=== PATIENT | male | born 1955 | race Caucasian/White ===

== ENCOUNTER → 2017-05-27 | Outpatient (CLI) | payer MEDICARE, OTHER ==
--- NOTE | 2017-05-27 19:47 | MR ---
EXAMINATION TYPE: MR lumbar spine wo con DATE OF EXAM: 05/27/2017 COMPARISON: NONE HISTORY: M 53.16 radiculopathy of the lumbar region as well as leg weakness. TECHNIQUE: Multiplanar, multisequence images of the lumbar spine were acquired. Marrow signal is slightly heterogeneous. Mild endplate changes are noted. All of the intervertebral d iscs are desiccated. There is loss of intervertebral disc space height at the level of L4-5 and L5-S1 . Soft tissue structures are unremarkable. The conus ends at T12 which is normal. L1-L2: There is a circumferential disc bulge which effaces the ventral thecal sac and goes into both neural foramina. This causes moderate right and mild left neural foraminal narrowing. There is also m ild facet hypertrophy and ligamentum flavum hypertrophy. No central canal stenosis is identified. L2-L3: There is severe central canal stenosis. The diameter of the central canal is only 7 mm. This i s due to a combination of disc bulge as well as ligamentum flavum and facet hypertrophy. There is als o mild endplate spurring. There is mild bilateral neural foraminal narrowing. L3-L4: There is severe central canal stenosis with only 4 mm of the central canal diameter identified . This is due to posterior disc bulge with a superimposed left paracentral herniation. There is also ligamentum flavum hypertrophy and facet hypertrophy. There is a T2 hyperintense focus noted in the ep idural space posterior to the right of the central canal. This is definitely causing mass effect on t he central canal. This could be a synovial cyst. L4-L5: There is moderate central canal stenosis due to circumferential disc bulge. There is also endp late spurring into the right neural foramen which causes moderate to severe right-sided neural forami nal narrowing. There is no left-sided neural foraminal narrowing. There is also facet and ligamentum flavum hypertrophy not as severe as the more superior levels. L5-S1: There is no significant central canal stenosis. There is moderate bilateral neural foraminal n arrowing due to superimposed disc herniations into both neural foramen. There appears to be near obli teration of the left neural foramen. There is only mild right-sided neural foraminal narrowing. Lumbar segments are intact. No paraspinal masses are identified. Conus medullaris has a normal appe arance. IMPRESSION: Severe spondylosis with severe central canal stenosis worst at the levels of L2-3 and L3-4.
== END | disposition home or self-care (01) ==
LOC: RADMRIMAIN 12:03
PROVIDERS: ATTEND Psychiatry & Neurology Neurology
DX: M48.061 Spinal stenosis, lumbar region without neurogenic claudication (principal); M47.26 Other spondylosis with radiculopathy, lumbar region
CPT/HCPCS: 72148

== ENCOUNTER → 2022-09-21 | Outpatient (CLI) | payer MEDICARE ==
--- NOTE | 2022-09-21 16:06 | XR ---
EXAMINATION TYPE: XR chest 2V DATE OF EXAM: 09/21/2022 COMPARISON: None INDICATION: Cough TECHNIQUE: Frontal and lateral views of the chest are obtained. FINDINGS: The heart size is normal. The pulmonary vasculature is normal. The lungs are clear. Degenerative changes are at the left shoulder. IMPRESSION: 1. No acute pulmonary process.
== END | disposition home or self-care (01) ==
LOC: RADXRMAIN 15:36
PROVIDERS: ATTEND Family Medicine
DX: R05.9 Cough, unspecified (principal)
CPT/HCPCS: 71046

== ENCOUNTER 2023-04-13 19:02 | Inpatient (IN) | payer MEDICARE, OTHER ==
--- NOTE | 2023-04-13 20:01 | ED ---
Abdominal Pain HPI - General Chief Complaint: Abdominal Pain Stated Complaint: Back Pain Time Seen by Provider: 04/13/23 19:09 Source: patient, family, RN notes reviewed Mode of arrival: EMS Limitations: no limitations - History of Present Illness Initial Comments: This is a 68-year-old male who presents to the emergency department for abdominal pain and back pain. Patient is a poor historian, however EMS was reportedly called due to increasing abdominal pain. Patient also reported having back pain. He does have a history of chronic back pain as well as ongoing constipation related to long-term use of [place]. He states that he has not had a bowel movement in 4 days, however this is not uncommon for him. He usually treats this with MiraLAX. Denies any nausea or vomiting. States that since being in the emergency department, his pain has started to improve and he denies any other complaints. When his family arrived, they provided much more information. They state that today out of no where he started to develop severe pain in his back and abdomen, and then became very dizzy and diaphoretic. The episode was a fairly short, however this prompted his family to call EMS. Family states that he has been increasingly weak and has been experiencing frequent falls. He's also been complaining of back pain for a longer period of time. About a year ago he had cervical fusion surgery at [facility], and his symptoms at that time were weakness in both arms and frequent falls. This family is concerned that he may have a similar problem in his lower back and need surgery for this. His also states that sometimes he will go up to 10 days without a bowel movement, which is due to his long-term use of [place]. Complaint: abdominal pain - Related Data Allergies Allergy/AdvReac Type Severity Reaction Status Date / Time No Known Allergies Allergy Verified 04/13/23 19:12 Review of Systems ROS Statement: Those systems with pertinent positive or pertinent negative responses have been documented in the HPI. ROS Other: All systems not noted in ROS Statement are negative. Past Medical History Past Medical History: Hyperlipidemia, Hypertension, Osteoarthritis (OA) Additional Past Medical History / Comment(s): djd of spine History of Any Multi-Drug Resistant Organisms: None Reported Past Surgical History: Orthopedic Surgery Additional Past Surgical History / Comment(s): cervical fusion Smoking Status: Current every day smoker Past Alcohol Use History: None Reported Past Drug Use History: None Reported General Exam Limitations: no limitations General appearance: alert, in no apparent distress Head exam: Present: atraumatic, normocephalic, normal inspection Respiratory exam: Present: normal lung sounds bilaterally. Absent: respiratory distress, wheezes, rales, rhonchi, stridor Cardiovascular Exam: Present: regular rate, normal rhythm, normal heart sounds. Absent: systolic murmur, diastolic murmur, rubs, gallop, clicks GI/Abdominal exam: Present: soft, other (palpable stool throughout) Neurological exam: Present: alert, oriented X3, CN II-XII intact Psychiatric exam: Present: normal affect, normal mood Skin exam: Present: warm, dry, intact, normal color. Absent: rash Course Vital Signs 04/13/23 19:04 Temperature 97 F L Pulse Rate 86 Respiratory 16 Rate Blood Pressure 119/85 O2 Sat by Pulse 95 Oximetry Medical Decision Making - Medical Decision Making This is a 68-year-old male who presents to the emergency department for abdominal pain and back pain. Was pt. sent in by a medical professional or institution? @ -No Did you speak to anyone other than the patient for history? @ -His family provided the majority of the information. Did you review nursing and triage notes? @ -Yes, and I agree, it is accurate with regards to the patient's symptoms. Were old charts reviewed? @ -No Differential Diagnosis? @ -Differential Abdominal Pain Men: Appendicitis, cholecystitis, diverticulosis, ischemic bowel, pancreatitis, hepatitis, UTI, gastroenteritis, AAA, incarcerated hernia, bowel obstruction, constipation, inflammatory bowel, hepatitis, peptic ulcer disease, splenic infarction, perforated viscus, testicular torsion, this is not meant to be an all-inclusive list EKG interpreted by me (3pts min.)? @ -EKG interpreted by me demonstrating the following: Sinus rhythm. Ventricular rate 88 bpm, TN interval 206 ms, QRS duration 90 ms, QTC 386 ms. X-rays interpreted by me (1pt min.)? @ -KUB x-ray obtained. My interpretation identifies significant stool burden. CT interpreted by me (1pt min.)? @ -CT scan of the abdomen/pelvis and lumbar spine obtained. My interpretation identifies a fairly significant amount of stool throughout the colon. My interpretation of the lumbar spine computed tomography scan identifies degenerative changes and no acute fractures. U/S interpreted by me (1pt. min.)? @ -Not obtained What testing was considered but not performed? (CT, X-rays, U/S, labs)? Why? @ -None What meds were considered but not given? Why? @ -None Did you discuss the management of the patient with other professionals? @ -Yes, Dr. Camara, who accepts the patient for admission. Did you reconcile home meds? @ -No Was smoking cessation discussed for >3mins.? @ -No Was critical care preformed (if so, how long)? @ -No Were there social determinants of health that impacted care today? How? (Homelessness, low income, unemployed, alcoholism, drug addiction, transportation, low edu. Level, literacy, decrease access to med. care, care home, rehab)? @ -No Was there de-escalation of care discussed even if they declined? (Discuss DNR or withdrawal of care, Hospice)? @ -No What co-morbidities impacted this encounter? (DM, HTN, Smoking, COPD, CAD, Cancer, CVA, Hep., AIDS, mental health diagnosis, sleep apnea, morbid obesity)? @ -HLD, HTN, DDD, OA Was patient admitted / discharged? @ -Admimtted. Lab work obtained revealing a leukocytosis as well as hypon atremia with a sodium of 121. Patient reports a history of hyponatremia in the past. States that he saw a apartment house manager and they could not figure out why. KUB x-ray obtained revealing gastric distended loops of small and large bowel, most notable in the left upper quadrant and mid abdominal positions. Given the leukocytosis and the patient's symptoms, CT scan of the abdomen/pelvis and lumbar spine obtained. This revealed significant stool burden without evidence of bowel obstruction. Computed tomography scan of the lumbar spine demonstrates multiple degenerative changes without any acute process. Patient does take [place] 10 mg every 6 hours for chronic pain, which is likely the main cause of this problem. Discussed with the family that the cause of the leukocytosis is not entirely clear. We obtained blood cultures and started the patient on Zosyn empirically. They later mentioned that the patient had one tooth pulled 4 days ago and wonder if that may be the cause of it. Advised that it is not entirely clear whether or not this may elevate the white blood cell count to this extent. Patient admitted to medicine for hyponatremia, leukocytosis, and weakness. Nephrology consulted regarding the hyponatremia. Consult placed for occupational and physical therapy regarding the weakness and frequent falls. Undiagnosed new problem with uncertain prognosis? @ -None Drug Therapy requiring intensive monitoring for toxicity (Heparin, Nitro, Insulin, Cardizem)? @ -None Were any procedures done? @ -None Diagnosis/symptom? @ -Hyponatremia, leukocytosis, weakness Acute, or Chronic, or Acute on Chronic? @ -Acute Uncomplicated (without systemic symptoms) or Complicated (systemic symptoms)? @ -Complicated Side effects of treatment? @ -None Exacerbation, Progression, or Severe Exacerbation] @ -Not applicable Poses a threat to life or bodily function? @ -Yes This case was discussed in detail with the attending ED physician, Dr. Shepherd. Presentation, findings, and treatment plan discussed in detail as well. - Lab Data Result diagrams: 04/13/23 19:50 04/13/23 19:50 Lab Results 04/13/23 04/13/23 04/13/23 Range/Units 19:50 19:50 19:50 WBC 23.6 H (3.8-10.6) k/uL RBC 4.69 (4.30-5.90) m/uL Hgb 15.1 (13.0-17.5) gm/dL Hct 43.5 (39.0-53.0) % MCV 92.8 (80.0-100.0) fL MCH 32.2 (25.0-35.0) pg MCHC 34.7 (31.0-37.0) g/dL RDW 12.6 (11.5-15.5) % Plt Count 490 H (150-450) k/uL MPV 7.8 Neutrophils % (Manual) 83 % Band Neuts % (Manual) 1 % Lymphocytes % (Manual) 6 % Monocytes % (Manual) 10 % Metamyelocytes % 1 % Neutrophils # (Manual) 19.80 H (1.3-7.7) k/uL Lymphocytes # (Manual) 1.42 (1.0-4.8) k/uL Monocytes # (Manual) 2.36 H (0-1.0) k/uL Metamyelocytes # (Man) 0.24 H (0) k/uL Nucleated RBCs 0 (0-0) /100 WBC Manual Slide Review Performed Toxic Granulation Present Sodium 121 L (137-145) mmol/L Potassium 4.0 (3.5-5.1) mmol/L Chloride 86 L (98-107) mmol/L Carbon Dioxide 21 L (22-30) mmol/L Anion Gap 14 mmol/L BUN 13 (9-20) mg/dL Creatinine 1.03 (0.66-1.25) mg/dL Est GFR (CKD-EPI)AfAm 86 (>60 ml/min/1.73 sqM) Est GFR (CKD-EPI)NonAf 74 (>60 ml/min/1.73 sqM) Glucose 136 H (74-99) mg/dL Osmolality (280-301) mosm/kg Plasma Lactic Acid Tulio 1.8 (0.7-2.0) mmol/L Calcium 8.9 (8.4-10.2) mg/dL Phosphorus (2.5-4.5) mg/dL Magnesium (1.6-2.3) mg/dL Total Bilirubin 1.0 (0.2-1.3) mg/dL AST 32 (17-59) U/L ALT 16 (4-49) U/L Alkaline Phosphatase 71 (38-126) U/L Troponin I (0.000-0.034) ng/mL Total Protein 7.4 (6.3-8.2) g/dL Albumin 4.0 (3.5-5.0) g/dL Amylase (30-110) U/L Lipase (23-300) U/L TSH (0.465-4.680) mIU/L Cortisol ug/dL Urine Color Urine Appearance (Clear) Urine pH (5.0-8.0) Ur Specific [place] (1.001-1.035) Urine Protein (Negative) Urine Glucose (UA) (Negative) Urine Ketones (Negative) Urine Blood (Negative) Urine Nitrite (Negative) Urine Bilirubin (Negative) Urine Urobilinogen (<2.0) mg/dL Ur Leukocyte Esterase (Negative) Influenza Type A (PCR) (Not Detectd) Influenza Type B (PCR) (Not Detectd) RSV (PCR) (Not Detectd) SARS-CoV-2 (PCR) (Not Detectd) 04/13/23 04/13/23 04/13/23 Range/Units 19:50 21:15 21:25 WBC (3.8-10.6) k/uL RBC (4.30-5.90) m/uL Hgb (13.0-17.5) gm/dL Hct (39.0-53.0) % MCV (80.0-100.0) fL MCH (25.0-35.0) pg MCHC (31.0-37.0) g/dL RDW (11.5-15.5) % Plt Count (150-450) k/uL MPV Neutrophils % (Manual) % Band Neuts % (Manual) % Lymphocytes % (Manual) % Monocytes % (Manual) % Metamyelocytes % % Neutrophils # (Manual) (1.3-7.7) k/uL Lymphocytes # (Manual) (1.0-4.8) k/uL Monocytes # (Manual) (0-1.0) k/uL Metamyelocytes # (Man) (0) k/uL Nucleated RBCs (0-0) /100 WBC Manual Slide Review Toxic Granulation Sodium (137-145) mmol/L Potassium (3.5-5.1) mmol/L Chloride (98-107) mmol/L Carbon Dioxide (22-30) mmol/L Anion Gap mmol/L BUN (9-20) mg/dL Creatinine (0.66-1.25) mg/dL Est GFR (CKD-EPI)AfAm (>60 ml/min/1.73 sqM) Est GFR (CKD-EPI)NonAf (>60 ml/min/1.73 sqM) Glucose (74-99) mg/dL Osmolality (280-301) mosm/kg Plasma Lactic Acid Tulio (0.7-2.0) mmol/L Calcium (8.4-10.2) mg/dL Phosphorus (2.5-4.5) mg/dL Magnesium (1.6-2.3) mg/dL Total Bilirubin (0.2-1.3) mg/dL AST (17-59) U/L ALT (4-49) U/L Alkaline Phosphatase (38-126) U/L Troponin I <0.012 (0.000-0.034) ng/mL Total Protein (6.3-8.2) g/dL Albumin (3.5-5.0) g/dL Amylase 64 (30-110) U/L Lipase 92 (23-300) U/L TSH (0.465-4.680) mIU/L Cortisol ug/dL Urine Color Yellow Urine Appearance Clear (Clear) Urine pH 5.5 (5.0-8.0) Ur Specific [place] 1.029 (1.001-1.035) Urine Protein Trace H (Negative) Urine Glucose (UA) Negative (Negative) Urine Ketones Negative (Negative) Urine Blood Negative (Negative) Urine Nitrite Negative (Negative) Urine Bilirubin Negative (Negative) Urine Urobilinogen <2.0 (<2.0) mg/dL Ur Leukocyte Esterase Negative (Negative) Influenza Type A (PCR) (Not Detectd) Influenza Type B (PCR) (Not Detectd) RSV (PCR) (Not Detectd) SARS-CoV-2 (PCR) (Not Detectd) 04/13/23 04/13/23 Range/Units 21:25 23:28 WBC (3.8-10.6) k/uL RBC (4.30-5.90) m/uL Hgb (13.0-17.5) gm/dL Hct (39.0-53.0) % MCV (80.0-100.0) fL MCH (25.0-35.0) pg MCHC (31.0-37.0) g/dL RDW (11.5-15.5) % Plt Count (150-450) k/uL MPV Neutrophils % (Manual) % Band Neuts % (Manual) % Lymphocytes % (Manual) % Monocytes % (Manual) % Metamyelocytes % % Neutrophils # (Manual) (1.3-7.7) k/uL Lymphocytes # (Manual) (1.0-4.8) k/uL Monocytes # (Manual) (0-1.0) k/uL Metamyelocytes # (Man) (0) k/uL Nucleated RBCs (0-0) /100 WBC Manual Slide Review Toxic Granulation Sodium (137-145) mmol/L Potassium (3.5-5.1) mmol/L Chloride (98-107) mmol/L Carbon Dioxide (22-30) mmol/L Anion Gap mmol/L BUN (9-20) mg/dL Creatinine (0.66-1.25) mg/dL Est GFR (CKD-EPI)AfAm (>60 ml/min/1.73 sqM) Est GFR (CKD-EPI)NonAf (>60 ml/min/1.73 sqM) Glucose (74-99) mg/dL Osmolality 258 L (280-301) mosm/kg Plasma Lactic Acid Tulio (0.7-2.0) mmol/L Calcium (8.4-10.2) mg/dL Phosphorus 4.3 (2.5-4.5) mg/dL Magnesium 2.0 (1.6-2.3) mg/dL Total Bilirubin (0.2-1.3) mg/dL AST (17-59) U/L ALT (4-49) U/L Alkaline Phosphatase (38-126) U/L Troponin I (0.000-0.034) ng/mL Total Protein (6.3-8.2) g/dL Albumin (3.5-5.0) g/dL Amylase (30-110) U/L Lipase (23-300) U/L TSH 1.770 (0.465-4.680) mIU/L Cortisol 18 ug/dL Urine Color Urine Appearance (Clear) Urine pH (5.0-8.0) Ur Specific [place] (1.001-1.035) Urine Protein (Negative) Urine Glucose (UA) (Negative) Urine Ketones (Negative) Urine Blood (Negative) Urine Nitrite (Negative) Urine Bilirubin (Negative) Urine Urobilinogen (<2.0) mg/dL Ur Leukocyte Esterase (Negative) Influenza Type A (PCR) Not Detected (Not Detectd) Influenza Type B (PCR) Not Detected (Not Detectd) RSV (PCR) Not Detected (Not Detectd) SARS-CoV-2 (PCR) Not Detected (Not Detectd) - Radiology Data Radiology results: report reviewed, image reviewed Disposition Clinical Impression: Hyponatremia, Weakness, Leukocytosis Disposition: ADMITTED IP TO THIS HOSP Referrals: None,Stated [REFERRING] - 1-2 days
[2023-04-13 20:02] LABS: HCT 43.5 % (39.0-53.0); HGB 15.1 gm/dL (13.0-17.5); MCH 32.2 pg (25.0-35.0); MCHC 34.7 g/dL (31.0-37.0); MCV 92.8 fL (80.0-100.0); Mean Platelet Volume 7.8; Platelet Count 490 k/uL (150-450); RBC 4.69 m/uL (4.30-5.90); RDW 12.6 % (11.5-15.5); WBC 23.6 k/uL (3.8-10.6)
[2023-04-13 20:19] LABS: ALT 16 U/L (4-49); African American GFR (CKD) 86 (>60 ml/min/1.73 sqM); Anion Gap 14 mmol/L; Blood Urea Nitrogen 13 mg/dL (9-20); Calcium 8.9 mg/dL (8.4-10.2); Carbon Dioxide 21 mmol/L (22-30); Chloride 86 mmol/L (98-107); Glucose 136 mg/dL (74-99); Non-African American GFR(CKD) 74 (>60 ml/min/1.73 sqM); Sodium 121 mmol/L (137-145)
[2023-04-13 20:23] LABS: AST 32 U/L (17-59); Alkaline Phosphatase 71 U/L (38-126); Total Protein 7.4 g/dL (6.3-8.2)
--- NOTE | 2023-04-13 20:35 | XR ---
EXAMINATION TYPE: XR KUB DATE OF EXAM: 04/13/2023 7:38 PM CLINICAL HISTORY: Abdominal pain/constipation TECHNIQUE: 2 upright views were obtained. COMPARISON: None. FINDINGS: There are gas distended loops of small and large bowel, most notably in the left upper quadrant and m id abdominal positions. There is an excessive volume of colonic stool. There is no visceromegaly, pneumoperitoneum, or abnormal calcification appreciated. The lung bases are clear and the osseous structures are intact. IMPRESSION: Findings as discussed.
[2023-04-13 20:43] LABS: Band Neutrophils % 1 %; Lymphocytes # (M) 1.42 k/uL (1.0-4.8); Metamyelocytes # (M) 0.24 k/uL (0); Metamyelocytes % 1 %; Monocytes # (M) 2.36 k/uL (0-1.0); Neutrophils % (M) 83 %; Nucleated Red Blood Cells 0 /100 WBC (0-0); Total Cells Counted 200
[2023-04-13 20:45] LABS: Toxic Granulation Present
[2023-04-13 21:48] LABS: Appearance,Urine Clear (Clear); Bilirubin,Urine Negative (Negative); Blood,Urine Negative (Negative); Color,Urine Yellow; Glucose,Urine (UA) Negative (Negative); Ketones,Urine Negative (Negative); Leukocyte Esterase,Urine Negative (Negative); Nitrite,Urine Negative (Negative); PH, Urine 5.5 (5.0-8.0); Protein,Urine Trace (Negative); Specific Gravity,Urine 1.029 (1.001-1.035); Urobilinogen,Urine <2.0 mg/dL (<2.0)
[2023-04-13 21:52] LABS: Amylase 64 U/L (30-110); Lipase 92 U/L (23-300)
--- NOTE | 2023-04-13 22:03 | CT ---
EXAMINATION TYPE: CT abdomen pelvis w con DATE OF EXAM: 04/13/2023 COMPARISON: Same day radiographs.602 HISTORY: abdominal pain, constipation CT DLP: combined DLP 2145.1 mGycm, Automated Exposure Control for Dose Reduction was Utilized. CONTRAST: CT scan of the abdomen and pelvis is performed with oral and with IV Contrast, patient inje cted with 100 mL of Isovue 300. FINDINGS: LUNG BASES: No significant abnormality is appreciated. LIVER/GB: No significant abnormality is appreciated. PANCREAS: No significant abnormality is seen. SPLEEN: No significant abnormality is seen. ADRENALS: No significant abnormality is seen. KIDNEYS: No significant abnormality is seen. BOWEL: There is prominent volume of stool throughout the colon including the rectosigmoid. There is n o bowel obstruction. PROSTATE/SEMINAL VESICLES: No gross abnormality seen. LYMPH NODES: No greater than 1cm abdominal or pelvic lymph nodes are appreciated. OSSEOUS STRUCTURES: No significant abnormality is seen. OTHER: No significant additional abnormality is seen. IMPRESSION: Negative for bowel obstruction. Excessive colonic stool.
--- NOTE | 2023-04-13 22:14 | CT ---
EXAMINATION TYPE: CT lumbar spine w con DATE OF EXAM: 04/13/2023 COMPARISON: None HISTORY: back pain, leg weakness. ED patient. CT DLP: combined DLP 2145.1 mGycm Automated exposure control for dose reduction was used. CONTRAST: CT scan of the lumbar is performed with IV Contrast, patient injected with 100 mL of Isovue 300. FINDINGS: Negative for fracture or malalignment. No pars interarticularis defect or focal aggressive osseous le hazel. Multilevel advanced lumbar spondylosis changes, creating prominent central canal/lateral recess spina l stenosis at the L3-4, L4-5, and L5-S1 levels. No incidental acute paravertebral soft tissue findings. IMPRESSION: No acute process. Three level spinal stenosis.
[2023-04-13] MEDS ORDERED: HYDROcodone/APAP 10-325MG 1 EACH TAB PO ONE (22:52)
[2023-04-13] MEDS ORDERED: MAGNESIUM CITRATE 296 ML BOTTLE PO ONE (22:53)
[2023-04-13] MEDS ORDERED: SODIUM CHLORIDE 0.9% 1,000 ML IV STA (22:54)
[2023-04-13] MEDS ORDERED: PIPERACILLIN-TAZOBACTAM 3.375 GM in SODIUM CHLORIDE 0.9% 100 ML IVPB STA (22:55)
[2023-04-13] MEDS ORDERED: BENZOCAINE 20 % GEL 11.9 GM TUBE MM ONE (22:56)
[2023-04-13 23:10] LABS: Phosphorus 4.3 mg/dL (2.5-4.5)
[2023-04-14] MEDS ORDERED: ONDANSETRON 4 MG/2 ML VIAL IVP PRN (00:12)
[2023-04-14] MEDS ORDERED: ACETAMINOPHEN TAB 325 MG TAB PO PRN (00:12)
[2023-04-14] MEDS ORDERED: MORPHINE SULFATE 4 MG/ML SYRINGE IV PRN (00:12)
[2023-04-14] MEDS ORDERED: NALOXONE 0.4 MG/ML 1 ML VIAL IV PRN (00:12)
[2023-04-14] MEDS ORDERED: HYDROcodone/APAP 10-325MG 1 EACH TAB PO ONE (06:30)
[2023-04-14 08:32] LABS: African American GFR (CKD) >90 (>60 ml/min/1.73 sqM); Anion Gap 16 mmol/L; Blood Urea Nitrogen 17 mg/dL (9-20); Calcium 9.3 mg/dL (8.4-10.2); Carbon Dioxide 20 mmol/L (22-30); Chloride 89 mmol/L (98-107); Glucose 114 mg/dL (74-99); Non-African American GFR(CKD) 79 (>60 ml/min/1.73 sqM); Potassium 4.2 mmol/L (3.5-5.1); Sodium 125 mmol/L (137-145)
[2023-04-14] MEDS: PIPERACILLIN-TAZOBACTAM 3.375 GM in SODIUM CHLORIDE 0.9% 100 ML IVPB SCH ×3 (09:22→22:24)
--- NOTE | 2023-04-14 12:33 | P.CNOR ---
History of Present Illness - [facility] Consult date: 04/14/23 Requesting physician: Ashlie Jaime Consult reason: low back pain (Low back pain with neurogenic claudication with generalized lower extremity weakness) History of present illness: Patient is a pleasant but somewhat confused 68-year-old male who is seen and examined in the emergency department ER #[id number] for further evaluation of his lumbar spine. She is known have chronic changes at his lumbar spine. He presented to the emergency department for abdominal pain along with his chronic low back pain. He does have a history of ongoing constipation related to long-term use of narcotic medication. He has not had a reported bowel movement in 4 days. We are consulted in regards to his lumbar spine. Patient has a history of chronic low back pain and has followed pain management in the outpatient setting for a number of years. He presented treatment with Dr. Garner, Dr. Manjarrez through [facility], and currently with Dr. Galarza at [facility]. He was scheduled for an epidural steroid injection on 03/16/2023 but was canceled due to insurance. He states he does have some chronic low back pain with generalized weakness in h is lower extremities. He denies a specific lower extremity weakness or radiculopathy pattern. He states his legs will just give out on him. He is known have multilevel degenerative changes lumbar spine. His previous he seen and examined by us in our office in 2018. He was a candidate for surgical intervention for lumbar fusion L2-5 at that time. During his presentation to the emergency department, he has had multiple imaging modalities performed including lumbar CT and abdomen/pelvis CT. Currently, patient is undergoing further treatment evaluation in regards to his constipation along with leukocytosis and hyponatremia. Consultation has been place with nephrology. Patient is answering questions at the bedside but does have some confusion. He is able to state his date of but is not exactly sure where he is at. He does not currently think that Robert Myles is the online content editor. We were able to review MRI imaging of the lumbar spine taken in the outpatient setting in 2022. Past Medical History Past Medical History: Hyperlipidemia, Hypertension, Osteoarthritis (OA) Additional Past Medical History / Comment(s): djd of spine History of Any Multi-Drug Resistant Organisms: None Reported Past Surgical History: Orthopedic Surgery Additional Past Surgical History / Comment(s): cervical fusion Smoking Status: Current every day smoker Past Alcohol Use History: None Reported Past Drug Use History: None Reported Medications and Allergies Home Medications Medication Instructions Recorded Confirmed Type Cyclobenzaprine [Flexeril] 10 mg PO BID PRN 04/14/23 04/14/23 History Fluticasone/Umeclidin/Vilanter 1 puff INHALATION RT-DAILY 04/14/23 04/14/23 History [Trelegy Ellipta 100-62.5-25] HYDROcodone/APAP 10-325MG [[place] 1 tab PO TID PRN 04/14/23 04/14/23 History 10-325] Ibuprofen [Motrin] 600 mg PO Q6H PRN 04/14/23 04/14/23 History Losartan-Hctz 50-12.5 mg [Hyzaar 1 tab PO DAILY 04/14/23 04/14/23 History 50-12.5] Pantoprazole Sodium [Protonix] 40 mg PO DAILY 04/14/23 04/14/23 History carvediloL [Coreg] 6.25 mg PO BID 04/14/23 04/14/23 History tadalafiL [Cialis] 5 mg PO DAILY 04/14/23 04/14/23 History Allergies Allergy/AdvReac Type Severity Reaction Status Date / Time No Known Allergies Allergy Verified 04/14/23 09:31 Physical Examination Osteopathic Statement: *. No significant issues noted on an osteopathic structural exam other than those noted in the History and Physical/Consult. Physical exam: Patient is awake, alert, and oriented 3 but is not able to answer all questions appropriately but is able to follow commands Vital signs stable Good chest excursion with deep inspiration and expiration Examination of lumbar spine reveals skin is intact with no abrasions, lacerations, or bruises; no erythema, purulence or signs of infection Dorsiflexion, plantarflexion, and extensor hallucis longus positive sustained bilaterally Lower extremity strength 5/5 bilaterally No lower extremity hyperreflexia bilaterally Straight leg test negative bilateral lower extremities No signs or symptoms of DVT; no calf pain No pain with internal and external rotation of the hips bilaterally Neurovascularly intact Results Pertinent studies: CT lumbar spine taken on 04/13/2023: Multilevel advanced lumbar spondylosis and degenerative change with central canal stenosis and lateral recess stenosis at L2-3, L3-4, L4-5, and L5-S1 CT of the abdomen and pelvis taken on 04/13/2023: Extensive colonic stool MRI of the lumbar spine taken in the outpatient setting on 07/26/2022: Straightening of normal lumbar lordosis; L2-3 degenerative disc disease, disc herniation, facet arthropathy resulting in bilateral foraminal stenosis and moderate central canal stenosis; L3-4 degenerative disc disease, disc herniation, and significant facet spondylosis with right facet cyst with severe central canal stenosis and severe left foraminal stenosis; L4-5 significant degenerative disc disease, disc bulge, facet arthropathy resulting in severe bilateral foraminal stenosis with [id number] central canal stenosis; L5-S1 degenerative disc disease, posterior disc herniation, and facet arthropathy with bilateral neural foraminal narrowing - Labs Labs: Abnormal Lab Results - Last 24 Hours (Table) 04/13/23 04/13/23 04/13/23 Range/Units 19:50 19:50 21:15 WBC 23.6 H (3.8-10.6) k/uL Plt Count 490 H (150-450) k/uL Neutrophils # (Manual) 19.80 H (1.3-7.7) k/uL Monocytes # (Manual) 2.36 H (0-1.0) k/uL Metamyelocytes # (Man) 0.24 H (0) k/uL Sodium 121 L (137-145) mmol/L Chloride 86 L (98-107) mmol/L Carbon Dioxide 21 L (22-30) mmol/L Glucose 136 H (74-99) mg/dL Osmolality (280-301) mosm/kg Procalcitonin (0.02-0.09) ng/mL Urine Protein Trace H (Negative) 04/13/23 04/13/23 04/14/23 Range/Units 21:25 23:28 07:45 WBC (3.8-10.6) k/uL Plt Count (150-450) k/uL Neutrophils # (Manual) (1.3-7.7) k/uL Monocytes # (Manual) (0-1.0) k/uL Metamyelocytes # (Man) (0) k/uL Sodium 125 L (137-145) mmol/L Chloride 89 L (98-107) mmol/L Carbon Dioxide 20 L (22-30) mmol/L Glucose 114 H (74-99) mg/dL Osmolality 258 L 262 L (280-301) mosm/kg Procalcitonin 0.15 H (0.02-0.09) ng/mL Urine Protein (Negative) H & H 04/13/23 Range/Units 19:50 Hgb 15.1 (13.0-17.5) gm/dL Hct 43.5 (39.0-53.0) % Result Diagrams: 04/14/23 07:45 04/14/23 15:38 Assessment and Plan Assessment: Assessment: Low back pain Neurogenic claudication L2-3 bilateral foraminal stenosis with moderate central canal stenosis L3-4 severe central canal stenosis and severe left foraminal stenosis L4-5 severe bilateral foraminal stenosis with mild to moderate central canal stenosis Lumbar spinal stenosis Lumbar facet arthropathy Generalized lower extremity weakness Lumbar degenerative disc disease Constipation Abdominal pain Hyponatremia Leukocytosis Hyperlipidemia Hypertension (1) Neurogenic claudication due to lumbar spinal stenosis Current Visit: Yes Status: Acute Code(s): M48.062 - SPINAL STENOSIS, LUMBAR REGION WITH NEUROGENIC CLAUDICATION SNOMED Code(s): 923355161 (2) Low back pain Current Visit: Yes Status: Acute Code(s): M54.50 - LOW BACK PAIN, UNSPECIFIED SNOMED Code(s): 785376974 (3) Lumbar spinal stenosis Current Visit: Yes Status: Acute Code(s): M48.061 - SPINAL STENOSIS, LUMBAR REGION WITHOUT NEUROGENIC GLENDA SNOMED Code(s): 01720638 (4) Lumbar degenerative disc disease Current Visit: Yes Status: Acute Code(s): M51.36 - OTHER INTERVERTEBRAL DISC DEGENERATION, LUMBAR REGION SNOMED Code(s): 30936895 (5) Lumbar facet arthropathy Current Visit: Yes Status: Acute Code(s): M47.816 - SPONDYLOSIS W/O MYELOPATHY OR RADICULOPATHY, LUMBAR REGION SNOMED Code(s): 124704555 (6) Constipation Current Visit: Yes Status: Acute Code(s): K59.00 - CONSTIPATION, UNSPECIFIED SNOMED Code(s): 79877501 (7) Abdominal pain Current Visit: Yes Status: Acute Code(s): R10.9 - UNSPECIFIED ABDOMINAL PAIN SNOMED Code(s): 17646933 (8) Hypertension Current Visit: Yes Status: Acute Code(s): I10 - ESSENTIAL (PRIMARY) HYPERTENSION SNOMED Code(s): 63699539 (9) Hyperlipidemia Current Visit: Yes Status: Acute Code(s): E78.5 - HYPERLIPIDEMIA, UNSPECIFIED SNOMED Code(s): 29817161 (10) Hyponatremia Current Visit: Yes Status: Acute Code(s): E87.1 - HYPO-OSMOLALITY AND HYPONATREMIA SNOMED Code(s): 27096749 (11) Leukocytosis Current Visit: Yes Status: Acute Code(s): D72.829 - ELEVATED WHITE BLOOD CELL COUNT, UNSPECIFIED SNOMED Code(s): 273903227 (12) Weakness Current Visit: Yes Status: Acute Code(s): R53.1 - WEAKNESS SNOMED Code(s): 18017684 Plan: Plan: 1. After further discussion with the patient, reviewing the patient's history, physical examination, and reviewing of imaging, we will currently plan the patient continue conservative treatment regards to his lumbar spine. He does have significant chronic changes at his lumbar spine most significant at L2-3, L3-4, L4-5, and L5-S1. He does describe low back pain with lower extremity generalized weakness and neurogenic claudication. He would be a candidate for a significant lumbar fusion. We did discuss most likely proposed surgical intervention would be an L2-3, L3-4, L4-5, and L5-S1 minimally invasive posterior lateral decompression and fusion with transforaminal lumbar interbody fusion. Currently, he is being seen and evaluated by multiple other medical providers for his other medical diagnoses including constipation, leukocytosis, and hyponatremia. He should continue with further evaluation and treatment in regards to these diagnoses. He has been following with Dr. Galarza in the outpatient setting for pain management standpoint. He was scheduled for an injection on 03/17/2023 was canceled due unable to obtain authorization by insurance. He is planning to continue following with Dr. Galarza in the outpatient setting and may plan to proceed forward with further injections once authorized. Currently, we'll plan to have him follow up on an as-needed basis in the outpatient setting after he continues to follow with pain management. If he were to fail conservative treatment, Dr. Galarza will plan to refer the patient back to us to discuss further treatment options including the possibility of extensive lumbar fusion surgery. Patient does feel this is a good plan of care. Patient is currently cleared for discharge from an orthopedic spine standpoint. I have reviewed the case and the imaging. I agree with the dictation above. We do not have plans for surgical intervention at this point during this hospitalization. He is continuing his pins are for his medical issues and can follow-up with interventional pain management after discharge. Time with Patient: Greater than 30 (Including obtaining history, physical exami nation, reviewing of imaging, and dictation.)
--- NOTE | 2023-04-14 12:46 | P.NPCON ---
History of Present Illness - Reason for Consult hyponatremia - History of Present Illness Reason for consultation: Hyponatremia History of present illness: Patient is a 68-year-old male seen in consultation for hyponatremia. Patient's sodium level on admission on 04/13/2023 at 7:50 PM was 121 and up to 125 this morning. Patient came to the hospital due to abdominal pain and back pain. Patient is a poor story and and history is obtained mostly from the chart. He was noted the patient was quite dizzy and diaphoretic when he was advised to go to the hospital by the family members. It is noted the patient was experiencing falls. CT of the abdomen and pelvis was negative for bowel obstruction. E xcessive stool was noted. I do see thiazide diuretic and his home medication list as well as Motrin which and bosentan dose hyponatremia. Oral intake is poor. Patient has food sitting next to him but hasn't eaten any of it. He denies vomiting or diarrhea. Has been voiding. Hemodynamically stable. Vital signs are stable. General: No audible rhonchi or wheezes. HEENT: Head exam is unremarkable. LUNGS: No audible rhonchi or wheezes. HEART: Rate and Rhythm are regular. ABDOMEN: Nontender. EXTREMITITES: No edema. Past Medical History Past Medical History: Hyperlipidemia, Hypertension, Osteoarthritis (OA) Additional Past Medical History / Comment(s): djd of spine History of Any Multi-Drug Resistant Organisms: None Reported Past Surgical History: Orthopedic Surgery Additional Past Surgical History / Comment(s): cervical fusion Smoking Status: Current every day smoker Past Alcohol Use History: None Reported Past Drug Use History: None Reported Medications and Allergies Home Medications Medication Instructions Recorded Confirmed Type Cyclobenzaprine [Flexeril] 10 mg PO BID PRN 04/14/23 04/14/23 History Fluticasone/Umeclidin/Vilanter 1 puff INHALATION RT-DAILY 04/14/23 04/14/23 History [Trelegy Ellipta 100-62.5-25] HYDROcodone/APAP 10-325MG [[place] 1 tab PO TID PRN 04/14/23 04/14/23 History 10-325] Ibuprofen [Motrin] 600 mg PO Q6H PRN 04/14/23 04/14/23 History Losartan-Hctz 50-12.5 mg [Hyzaar 1 tab PO DAILY 04/14/23 04/14/23 History 50-12.5] Pantoprazole Sodium [Protonix] 40 mg PO DAILY 04/14/23 04/14/23 History carvediloL [Coreg] 6.25 mg PO BID 04/14/23 04/14/23 History tadalafiL [Cialis] 5 mg PO DAILY 04/14/23 04/14/23 History Allergies Allergy/AdvReac Type Severity Reaction Status Date / Time No Known Allergies Allergy Verified 04/14/23 09:31 Physical Exam Vitals: Vital Signs Temp Pulse Resp BP Pulse Ox 04/14/23 06:00 105 H 18 141/85 97 04/14/23 05:00 95 18 109/79 96 04/14/23 04:00 92 18 125/80 94 L 04/14/23 03:00 95 18 114/82 94 L 04/14/23 02:00 85 18 92/62 94 L 04/14/23 01:00 96 18 106/65 94 L 04/14/23 00:00 101 H 18 128/94 94 L 04/13/23 23:00 85 18 123/89 94 L 04/13/23 19:04 97 F L 86 16 119/85 95 Intake and Output 04/13/23 04/14/23 04/14/23 22:59 06:59 14:59 Other: Weight 86.183 kg Results - Lab Results Most recent lab results Calcium 9.3 mg/dL (8.4-10.2) 04/14/23 07:45 Phosphorus 4.3 mg/dL (2.5-4.5) 04/13/23 21:25 Magnesium 2.0 mg/dL (1.6-2.3) 04/14/23 07:45 04/13/23 19:50 04/14/23 07:45 Assessment and Plan Plan: Assessment: 1. Hypovolemic hyponatremia further worsened with the use of NSAIDs and thiazide diuretic. Improved with normal saline. Sodium level 121 on admission and is 125 this morning. GFR at baseline. TSH normal. Cortisol level not low. 2. Benign hypertension. Stable. 3. 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 Being followed by orthopedic surgery. Surgery being considered. 4. Metabolic acidosis secondary to IV fluids. Plan: Maintain normal saline. Repeat sodium level this evening. Avoid thiazide diuretics. Thank you for the consultation. I will continue to follow the patient with you during his hospital stay.
[2023-04-14 13:42] LABS: Basophils # (A) 0.1 k/uL (0-0.2); Basophils % (A) 0 %; Eosinophils # (A) 0.1 k/uL (0-0.7); Eosinophils % (A) 1 %; HCT 49.3 % (39.0-53.0); HGB 16.2 gm/dL (13.0-17.5); Lymphocytes # (A) 1.6 k/uL (1.0-4.8); Lymphocytes % (A) 7 %; MCH 31.6 pg (25.0-35.0); MCHC 32.9 g/dL (31.0-37.0); MCV 95.9 fL (80.0-100.0); Mean Platelet Volume 10.2; Monocytes # (A) 1.6 k/uL (0-1.0); Monocytes % (A) 7 %; Neutrophils # (A) 20.5 k/uL (1.3-7.7); Neutrophils % (A) 85 %; Platelet Count 569 k/uL (150-450); RBC 5.14 m/uL (4.30-5.90); RDW 12.7 % (11.5-15.5); WBC 24.1 k/uL (3.8-10.6)
[2023-04-14] MEDS ORDERED: carvediloL 6.25 MG TAB PO SCH (17:30)
[2023-04-14] MEDS: SODIUM CHLORIDE 0.9% 1,000 ML IV SCH (20:41)
[2023-04-14] MEDS: IBUPROFEN 600 MG TAB PO SCH ×2 (20:42→23:06)
--- NOTE | 2023-04-14 21:54 | XR ---
EXAMINATION TYPE: XR chest 1V portable DATE OF EXAM: 04/14/2023 COMPARISON: 09/21/2022 INDICATION: Elevated white count TECHNIQUE: Frontal and lateral views of the chest are obtained. FINDINGS: The heart size is normal. The pulmonary vasculature is normal. Some platelike atelectasis at the left base.. IMPRESSION: 1. -Like atelectasis left base. Correlate for atelectasis. Pneumonia could be considered. Follow-up c an be performed as clinically indicated.
[2023-04-14] MEDS: polyethylene glycoL 3350 17 GM POWD.PACK PO SCH (22:32)
[2023-04-14] MEDS: carvediloL 6.25 MG TAB PO SCH (22:32)
[2023-04-14] MEDS: traZODone HCL 50 MG TAB PO SCH (22:32)
[2023-04-14 22:33] LABS: Appearance,Urine Slightly Cloudy (Clear); Color,Urine Yellow; PH, Urine 5.5 (5.0-8.0); Specific Gravity,Urine 1.025 (1.001-1.035)
[2023-04-14 22:34] LABS: Bilirubin,Urine Negative (Negative); Blood,Urine Trace (Negative); Glucose,Urine (UA) Negative (Negative); Ketones,Urine 1+ (Negative); Protein,Urine 1+ (Negative); Urobilinogen,Urine <2.0 mg/dL (<2.0)
[2023-04-14 22:35] LABS: Leukocyte Esterase,Urine Negative (Negative); Nitrite,Urine Negative (Negative)
[2023-04-14 22:43] LABS: Granular Casts,Urine 4 /lpf (0); Hyaline Casts,Urine 5 /lpf (0-2); Mucus,Urine Rare /hpf; RBC,Urine 1 /hpf (0-5); WBC,Urine 2 /hpf (0-5)
--- NOTE | 2023-04-15 04:41 | HP ---
HISTORY AND PHYSICAL CHIEF COMPLAINT: Weakness, confusion, hyponatremia, and leukocytosis. HISTORY OF PRESENT ILLNESS: This is the 1st known admission for this 68-year-old male. He is brought in by the family for confusion. Apparently, he has had some problems with confusion, but he has recently gotten a lot worse. There is no other history. He has no history of fever, chest pain, nausea, vomiting, diarrhea, bleeding, etc. In the emergency room, his sodium was 121, and his white count was 23,600. He did not have a cough. REVIEW OF SYSTEMS: Could not be obtained. He is confused. Past medical history, family history, and personal and social histories are obtained from his office record indicating he is not allergic to any medication and he was seen in January and was on pantoprazole, carvedilol, hydrocodone 10, Trelegy. He apparently is a smoker and has been known to drink "a moderate amount of alcohol." PHYSICAL EXAMINATION: VITAL SIGNS: Blood pressure is 150/100 with a pulse of 83 and regular, respirations 14. He is afebrile. GENERAL: Appeared to be in no acute distress. He is awake and alert, but confused and uncooperative. HEENT: Head, ears, eyes, nose, mouth, and throat were normal. CHEST: Clear. CARDIAC: Normal. ABDOMEN: Soft and nontender. EXTREMITIES: Normal. NEUROLOGIC: He was intact in terms of sensory motor evaluation, but confused. He is admitted to the hospital. DIAGNOSES: 1. Mental status changes. 2. Hyponatremia. 3. Leukocytosis. 4. Chronic obstructive pulmonary disease. 5. Possible alcoholism. PLAN: 1. Bedrest. 2. IV fluids. 3. Frequent monitoring of his neurologic status and vital signs. 4. We will look into etiology of elevated white count. 5. Correct hyponatremia. MMODL / IJN: [id number] /
[2023-04-15] MEDS: PIPERACILLIN-TAZOBACTAM 3.375 GM in SODIUM CHLORIDE 0.9% 100 ML IVPB SCH ×3 (04:49→21:37)
[2023-04-15] MEDS: PANTOPRAZOLE 40 MG TABLET PO SCH (07:03)
[2023-04-15] MEDS: IBUPROFEN 600 MG TAB PO SCH ×4 (09:49→21:38)
[2023-04-15] MEDS: carvediloL 6.25 MG TAB PO SCH ×2 (09:50→21:39)
[2023-04-15] MEDS: polyethylene glycoL 3350 17 GM POWD.PACK PO SCH ×2 (09:50→21:40)
[2023-04-15] MEDS: SODIUM CHLORIDE 0.9% 1,000 ML IV SCH (09:50)
[2023-04-15 10:41] LABS: African American GFR (CKD) >90 (>60 ml/min/1.73 sqM); Anion Gap 8 mmol/L; Blood Urea Nitrogen 14 mg/dL (9-20); Calcium 8.8 mg/dL (8.4-10.2); Carbon Dioxide 24 mmol/L (22-30); Chloride 95 mmol/L (98-107); Glucose 94 mg/dL (74-99); Non-African American GFR(CKD) 89 (>60 ml/min/1.73 sqM); Potassium 3.7 mmol/L (3.5-5.1); Sodium 127 mmol/L (137-145)
--- NOTE | 2023-04-15 11:42 | P.PN ---
Subjective Patient is seen for follow-up for hyponatremia. Maintained on normal saline. Sodium improved to 127 today. No significant complaints today. Objective - Vital Signs Vital signs: Vital Signs Temp 98.1 F 04/15/23 07:22 Pulse 96 04/15/23 07:22 Resp 19 04/15/23 07:22 BP 135/79 04/15/23 07:22 Pulse Ox 95 04/15/23 07:22 FiO2 Intake & Output 04/14/23 04/15/23 04/15/23 18:59 06:59 18:59 Intake Total 800 Balance 800 Weight 86.183 kg Intake: Intake, IV Titration 800 Amount Piperacillin-Tazobactam 3 200 .375 gm In Sodium Chloride 0.9% 100 ml @ 25 mls/hr IVPB Q8H AY[facility] Rx#: [id number] Sodium Chloride 0.9% 1, 600 000 ml @ 50 mls/hr IV . Q20H AYSHA Rx#:[id number] - Exam Patient is awake, comfortable, no acute distress Examination of the heart S1 and S2 Examination the lungs bilateral breath sounds are heard Abdomen is soft nontender Examination lower extremity shows no significant edema GENERAL COUNSELOR exam grossly intact - Labs CBC & Chem 7: 04/14/23 07:45 04/15/23 07:07 Labs: Abnormal Lab Results - Last 24 Hours (Table) 04/14/23 04/14/23 04/14/23 Range/Units 07:45 15:38 21:00 WBC 24.1 H (3.8-10.6) k/uL Plt Count 569 H (150-450) k/uL Neutrophils # 20.5 H (1.3-7.7) k/uL Monocytes # 1.6 H (0-1.0) k/uL Sodium 125 L (137-145) mmol/L Chloride (98-107) mmol/L Urine Protein 1+ H (Negative) Hyaline Casts 5 H (0-2) /lpf Urine Mucus Rare H (None) /hpf 04/15/23 Range/Units 07:07 WBC (3.8-10.6) k/uL Plt Count (150-450) k/uL Neutrophils # (1.3-7.7) k/uL Monocytes # (0-1.0) k/uL Sodium 127 L (137-145) mmol/L Chloride 95 L (98-107) mmol/L Urine Protein (Negative) Hyaline Casts (0-2) /lpf Urine Mucus (None) /hpf Assessment and Plan Assessment: 1. Hypovolemic hyponatremia further worsened with the use of NSAIDs and thiazide diuretic. Improved with normal saline. Sodium level 121 on admission and is 125 this morning. GFR at baseline. TSH normal. Cortisol level not low. 2. Benign hypertension. Stable. 3. Low back pain and neurogenic claudication with lumbar spine foraminal sten osis and central canal stenosis. Being followed by orthopedic surgery. Surgery being considered. 4. Metabolic acidosis secondary to IV fluids, improved. Plan: Continue with normal saline Repeat labs in a.m.
[2023-04-15] MEDS: traMADol 50 MG TAB PO PRN (17:01)
[2023-04-15] MEDS: traZODone HCL 50 MG TAB PO SCH (21:39)
[2023-04-15] MEDS: NYSTATIN 100,000 UNIT/ML SUSP 500,000 UNIT/5 ML CUP PO SCH (21:49)
[2023-04-16] MEDS: PIPERACILLIN-TAZOBACTAM 3.375 GM in SODIUM CHLORIDE 0.9% 100 ML IVPB SCH ×3 (05:43→20:54)
[2023-04-16] MEDS: PANTOPRAZOLE 40 MG TABLET PO SCH (06:41)
[2023-04-16] MEDS: SODIUM CHLORIDE 0.9% 1,000 ML IV SCH ×2 (06:42→08:25)
[2023-04-16] MEDS: NYSTATIN 100,000 UNIT/ML SUSP 500,000 UNIT/5 ML CUP PO SCH ×4 (08:23→20:58)
[2023-04-16] MEDS: polyethylene glycoL 3350 17 GM POWD.PACK PO SCH ×2 (08:23→20:54)
[2023-04-16] MEDS: carvediloL 6.25 MG TAB PO SCH ×2 (08:23→20:53)
[2023-04-16] MEDS: IBUPROFEN 600 MG TAB PO SCH ×4 (08:24→20:57)
[2023-04-16] MEDS: traMADol 50 MG TAB PO PRN ×2 (08:24→16:59)
[2023-04-16] MEDS: SYMBICORT 80-4.5 MCG INHALER INHALATION SCH ×2 (09:23→21:33)
[2023-04-16] MEDS: IPRATROPIUM 0.5 MG/2.5 ML NEBU INHALATION SCH ×4 (09:23→21:33)
--- NOTE | 2023-04-16 11:50 | P.PN ---
Subjective Patient is seen for follow-up for hyponatremia. Maintained on normal saline. Sodium improved to 127 yesterday. Labs are pending from today. Complaining of pain in the shoulders Objective - Vital Signs Vital signs: Vital Signs Temp 98.2 F 04/16/23 08:24 Pulse 92 04/16/23 09:43 Resp 17 04/16/23 08:24 BP 143/93 04/16/23 08:24 Pulse Ox 96 04/16/23 08:24 FiO2 Intake & Output 04/15/23 04/16/23 04/16/23 18:59 06:59 18:59 Intake Total 800 1100 Output Total 350 Balance 800 750 Weight 83.5 kg Intake: Intake, IV Titration 800 Amount Piperacillin-Tazobactam 3 200 .375 gm In Sodium Chloride 0.9% 100 ml @ 25 mls/hr IVPB Q8H [facility] Rx#: [id number] Sodium Chloride 0.9% 1, 600 000 ml @ 50 mls/hr IV . Q20H [facility] Rx#:[id number] Oral 1100 Output: Urine 350 Other: # Voids 3 - Exam Patient is awake, comfortable, no acute distress Examination of the heart S1 and S2 Examination the lungs bilateral breath sounds are heard Abdomen is soft nontender Examination lower extremity shows no significant edema GOLD LEAF PRINTER exam grossly intact - Labs CBC & Chem 7: 04/14/23 07:45 04/15/23 07:07 Labs: Microbiology - Last 24 Hours (Table) 04/13/23 23:40 Blood Culture - Preliminary Blood 04/13/23 23:40 Blood Culture - Preliminary Blood Assessment and Plan Assessment: 1. Hypovolemic hyponatremia further worsened with the use of NSAIDs and thiazide diuretic. Improved with normal saline. Sodium level 121 on admission and is 125 this morning. GFR at baseline. TSH normal. Cortisol level not low. Urine osmolality 444 2. Benign hypertension. Stable. 3. 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 Being followed by orthopedic surgery. Surgery being considered. 4. Metabolic acidosis secondary to IV fluids, improved. Plan: Continue with normal saline Repeat labs today
[2023-04-16 12:37] LABS: Basophils % (A) 0 %; Eosinophils # (A) 0.3 k/uL (0-0.7); Eosinophils % (A) 3 %; HCT 40.9 % (39.0-53.0); HGB 13.8 gm/dL (13.0-17.5); Lymphocytes # (A) 1.5 k/uL (1.0-4.8); Lymphocytes % (A) 12 %; MCH 31.3 pg (25.0-35.0); MCHC 33.7 g/dL (31.0-37.0); MCV 92.8 fL (80.0-100.0); Mean Platelet Volume 7.7; Monocytes # (A) 0.9 k/uL (0-1.0); Monocytes % (A) 7 %; Neutrophils # (A) 9.6 k/uL (1.3-7.7); Neutrophils % (A) 76 %; Platelet Count 482 k/uL (150-450); RBC 4.41 m/uL (4.30-5.90); RDW 12.8 % (11.5-15.5); WBC 12.6 k/uL (3.8-10.6)
[2023-04-16 12:58] LABS: ALT 17 U/L (4-49); AST 26 U/L (17-59); African American GFR (CKD) >90 (>60 ml/min/1.73 sqM); Albumin 3.1 g/dL (3.5-5.0); Alkaline Phosphatase 71 U/L (38-126); Anion Gap 8 mmol/L; Blood Urea Nitrogen 16 mg/dL (9-20); Calcium 8.5 mg/dL (8.4-10.2); Carbon Dioxide 24 mmol/L (22-30); Chloride 99 mmol/L (98-107); Glucose 113 mg/dL (74-99); Non-African American GFR(CKD) 89 (>60 ml/min/1.73 sqM); Sodium 131 mmol/L (137-145); Total Bilirubin 0.4 mg/dL (0.2-1.3); Total Protein 6.1 g/dL (6.3-8.2)
[2023-04-16] MEDS: traZODone HCL 50 MG TAB PO SCH (20:53)
[2023-04-17] MEDS: traMADol 50 MG TAB PO PRN (04:13)
[2023-04-17] MEDS: PIPERACILLIN-TAZOBACTAM 3.375 GM in SODIUM CHLORIDE 0.9% 100 ML IVPB SCH ×3 (05:01→21:55)
[2023-04-17] MEDS: PANTOPRAZOLE 40 MG TABLET PO SCH (06:48)
[2023-04-17] MEDS: IBUPROFEN 600 MG TAB PO SCH ×4 (08:10→21:57)
[2023-04-17] MEDS: polyethylene glycoL 3350 17 GM POWD.PACK PO SCH ×2 (08:10→21:57)
[2023-04-17] MEDS: NYSTATIN 100,000 UNIT/ML SUSP 500,000 UNIT/5 ML CUP PO SCH ×4 (08:11→22:09)
[2023-04-17] MEDS: carvediloL 6.25 MG TAB PO SCH ×2 (08:11→21:55)
[2023-04-17] MEDS: IPRATROPIUM 0.5 MG/2.5 ML NEBU INHALATION SCH ×4 (09:18→21:08)
[2023-04-17] MEDS: SYMBICORT 80-4.5 MCG INHALER INHALATION SCH ×2 (09:18→21:08)
--- NOTE | 2023-04-17 11:40 | P.PN ---
Subjective Patient is seen for follow-up for hyponatremia. Maintained on normal saline. Sodium improved to 131 yesterday. Tolerating oral intake. Objective - Vital Signs Vital signs: Vital Signs Temp 97.4 F L 04/17/23 07:29 Pulse 83 04/17/23 07:29 Resp 20 04/17/23 07:29 BP 155/89 04/17/23 07:29 Pulse Ox 97 04/17/23 07:29 FiO2 Intake & Output 04/16/23 04/17/23 04/17/23 18:59 06:59 18:59 Intake Total 800 Output Total 500 Balance 300 Weight 92 kg Intake: Intake, IV Titration 800 Amount Piperacillin-Tazobactam 3 200 .375 gm In Sodium Chloride 0.9% 100 ml @ 25 mls/hr IVPB Q8H [facility] Rx#: [id number] Sodium Chloride 0.9% 1, 600 000 ml @ 50 mls/hr IV . Q20H [facility] Rx#:[id number] Output: Urine 500 Other: # Voids 2 - Exam Patient is awake, comfortable, no acute distress Examination of the heart S1 and S2 Examination the lungs bilateral breath sounds are heard Abdomen is soft nontender Examination lower extremity shows no significant edema ASSISTANT FRONT OFFICE MANAGER exam grossly intact - Labs CBC & Chem 7: 04/16/23 11:54 04/16/23 11:54 Labs: Abnormal Lab Results - Last 24 Hours (Table) 04/16/23 04/16/23 Range/Units 11:54 11:54 WBC 12.6 H (3.8-10.6) k/uL Plt Count 482 H (150-450) k/uL Neutrophils # 9.6 H (1.3-7.7) k/uL Sodium 131 L (137-145) mmol/L Glucose 113 H (74-99) mg/dL Total Protein 6.1 L (6.3-8.2) g/dL Albumin 3.1 L (3.5-5.0) g/dL Microbiology - Last 24 Hours (Table) 04/13/23 23:40 Blood Culture - Preliminary Blood 04/13/23 23:40 Blood Culture - Preliminary Blood Assessment and Plan Assessment: 1. Hypovolemic hyponatremia further worsened with the use of NSAIDs and thiazide diuretic. Improved with normal saline. Sodium level 121 on admission and is 131 yesterday. GFR at baseline. TSH normal. Cortisol level not low. Urine osmolality 444 2. Benign hypertension. Stable. 3. 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 Being followed by orthopedic surgery. Surgery being considered. 4. Metabolic acidosis secondary to IV fluids, improved. Plan: Continue with normal saline Repeat labs today Continue to encourage increased oral intake, particularly protein. Avoid HCTZ upon discharge.
[2023-04-17] MEDS: traZODone HCL 50 MG TAB PO SCH (21:55)
[2023-04-17] MEDS: SODIUM CHLORIDE 0.9% 1,000 ML IV SCH (22:09)
[2023-04-18] MEDS: PIPERACILLIN-TAZOBACTAM 3.375 GM in SODIUM CHLORIDE 0.9% 100 ML IVPB SCH ×3 (04:02→20:37)
[2023-04-18] MEDS: PANTOPRAZOLE 40 MG TABLET PO SCH (06:43)
[2023-04-18] MEDS: IPRATROPIUM 0.5 MG/2.5 ML NEBU INHALATION SCH ×4 (08:36→21:07)
[2023-04-18] MEDS: SYMBICORT 80-4.5 MCG INHALER INHALATION SCH ×2 (08:36→21:07)
[2023-04-18] MEDS: IBUPROFEN 600 MG TAB PO SCH ×4 (09:23→20:37)
[2023-04-18] MEDS: NYSTATIN 100,000 UNIT/ML SUSP 500,000 UNIT/5 ML CUP PO SCH ×4 (09:24→20:42)
[2023-04-18] MEDS: polyethylene glycoL 3350 17 GM POWD.PACK PO SCH ×2 (09:26→20:39)
[2023-04-18] MEDS: carvediloL 6.25 MG TAB PO SCH ×2 (09:26→20:38)
--- NOTE | 2023-04-18 11:26 | P.PN ---
Subjective Patient is seen for follow-up for hyponatremia. Maintained on normal saline. Sodium improved to 131 on 04/16/2023. No labs available today. Tolerating oral intake. 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 Hypovolemic hyponatremia further worsened with the use of NSAIDs and thiazide diuretic. Improved with normal saline. Sodium level 121 on admission and is 131 yesterday. GFR at baseline. TSH normal. Cortisol level not low. Urine osmolality 444 2. Benign hypertension. Stable. 3. 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 Being followed by orthopedic surgery. Surgery being considered. 4. Metabolic acidosis secondary to IV fluids, improved. Plan: Repeat labs today Continue to encourage increased oral intake, particularly protein. Avoid HCTZ upon discharge.
[2023-04-18 12:02] LABS: African American GFR (CKD) >90 (>60 ml/min/1.73 sqM); Anion Gap 8 mmol/L; Blood Urea Nitrogen 14 mg/dL (9-20); Calcium 8.9 mg/dL (8.4-10.2); Carbon Dioxide 27 mmol/L (22-30); Chloride 98 mmol/L (98-107); Glucose 115 mg/dL (74-99); Non-African American GFR(CKD) >90 (>60 ml/min/1.73 sqM); Potassium 4.6 mmol/L (3.5-5.1); Sodium 133 mmol/L (137-145)
[2023-04-18] MEDS: traZODone HCL 50 MG TAB PO SCH (20:38)
[2023-04-18] MEDS: SODIUM CHLORIDE 0.9% 1,000 ML IV SCH (23:34)
[2023-04-19] MEDS: PIPERACILLIN-TAZOBACTAM 3.375 GM in SODIUM CHLORIDE 0.9% 100 ML IVPB SCH ×3 (05:45→23:19)
[2023-04-19] MEDS: IPRATROPIUM 0.5 MG/2.5 ML NEBU INHALATION SCH ×4 (07:56→21:01)
[2023-04-19] MEDS: SYMBICORT 80-4.5 MCG INHALER INHALATION SCH ×2 (07:56→21:01)
[2023-04-19] MEDS: NYSTATIN 100,000 UNIT/ML SUSP 500,000 UNIT/5 ML CUP PO SCH ×4 (09:54→23:20)
[2023-04-19] MEDS: IBUPROFEN 600 MG TAB PO SCH ×4 (09:54→23:21)
[2023-04-19] MEDS: PANTOPRAZOLE 40 MG TABLET PO SCH (09:54)
[2023-04-19] MEDS: carvediloL 6.25 MG TAB PO SCH (09:55)
[2023-04-19] MEDS: polyethylene glycoL 3350 17 GM POWD.PACK PO SCH ×2 (09:55→23:21)
--- NOTE | 2023-04-19 17:35 | DS ---
DISCHARGE SUMMARY CHIEF COMPLAINT: Weakness, confusion, and hyponatremia. HISTORY OF PRESENT ILLNESS AND PHYSICAL EXAMINATION: Details of this man's history and physical can be found in the initial workup. LABORATORY STUDIES: While he was in the hospital, he had laboratory studies, details of which can be found in the laboratory section of his chart. COURSE IN THE HOSPITAL: After admission, he was placed on bedrest, started on intravenous fluids, and efforts were made to correct his electrolyte imbalance, which was successful. While in the hospital, he initially was very lethargic and confused, but he gradually became more active, alert and oriented throughout his hospitalization as he was rehydrated. It was felt that his issues were related to alcoholism. Family felt that he was not able to return home, where he lives by himself and arrangements were made for him to go to a [facility] for physical therapy and rehab. He does have a lot of difficulties with arthritis and back pain. His blood pressure was also elevated and this was addressed. He is doing well. It was felt that he could be transferred on the and he will go there on activity as tolerated and his usual medical program with some additions to help control his hypertension. FINAL DIAGNOSES: 1. Mental status changes. 2. Dehydration. 3. Hyponatremia. 4. Alcoholism. 5. Hypertension. 6. Osteoarthritis of LS spine. OPERATIONS: None. CONSULTATIONS: None. He is improved. MMAMISH / JIM: [id number] /
[2023-04-19] MEDS: traMADol 50 MG TAB PO PRN (17:43)
[2023-04-19] MEDS: carvediloL 12.5 MG TAB PO SCH (17:43)
[2023-04-19] MEDS: SODIUM CHLORIDE 0.9% 1,000 ML IV SCH (23:13)
[2023-04-19] MEDS: traZODone HCL 50 MG TAB PO SCH (23:20)
--- NOTE | 2023-04-20 00:32 | CT ---
EXAM: CT Head Without Intravenous Contrast CLINICAL HISTORY: ITS.REASON CT Reason: dementia, alchohol, falling TECHNIQUE: Axial computed tomography images of the head/brain without intravenous contrast. CTDI is 49.2 mGy and DLP is 1167.4 mGy-cm. This CT exam was performed using one or more of the following dose reduction techniques: automated exposure control, adjustment of the mA and/or kV according to patient size, and/or use of iterative reconstruction technique. COMPARISON: No relevant prior studies available. FINDINGS: No acute intracranial hemorrhage. No midline shift or mass effect. The territorial astorga-white matter differentiation is maintained throughout. Age-related cerebral volume loss. Periventricular and subcortical white matter hypoattenuation, consistent with chronic microangiopathy. The visualized orbits appear grossly unremarkable. The calvarium is intact. The visualized paranasal sinuses and mastoid air cells are grossly clear. IMPRESSION: No acute intracranial hemorrhage, midline shift, or mass effect.
[2023-04-20] MEDS: PIPERACILLIN-TAZOBACTAM 3.375 GM in SODIUM CHLORIDE 0.9% 100 ML IVPB SCH (06:15)
[2023-04-20] MEDS: PANTOPRAZOLE 40 MG TABLET PO SCH (06:39)
[2023-04-20] MEDS: carvediloL 12.5 MG TAB PO SCH (06:40)
[2023-04-20] MEDS: SODIUM CHLORIDE 0.9% 1,000 ML IV SCH (07:44)
[2023-04-20] MEDS: IPRATROPIUM 0.5 MG/2.5 ML NEBU INHALATION SCH ×2 (07:54→11:08)
[2023-04-20] MEDS: SYMBICORT 80-4.5 MCG INHALER INHALATION SCH (07:54)
[2023-04-20 08:36] VITALS: BP 155/94; PULSE 77; RESP 20; TEMP 98.4
[2023-04-20] MEDS ORDERED: LOSARTAN 50 MG TAB PO SCH (09:00)
[2023-04-20] MEDS: NYSTATIN 100,000 UNIT/ML SUSP 500,000 UNIT/5 ML CUP PO SCH (09:08)
[2023-04-20] MEDS: IBUPROFEN 600 MG TAB PO SCH (09:08)
[2023-04-20] MEDS: polyethylene glycoL 3350 17 GM POWD.PACK PO SCH (09:09)
--- NOTE | 2023-04-20 10:59 | PN ---
PROGRESS NOTE DATE OF SERVICE: 04/20/2023 CHIEF COMPLAINT: Confusion. HISTORY OF PRESENT ILLNESS: This gentleman was discharged to [facility], but the son asked many questions about his father's mental status and asked if a CT of the brain had been done. I explained that it probably would not be helpful given his presentation and his improvement while in the hospital and that all of his neurologic issues were likely related to alcoholism. I assured him that a CT would have been done in the emergency room when he came in with confusion and the history of frequent falls. Checking the hospital reports, none had been done. Given the history, a CT without contrast was ordered. Report came back normal, and he will go to the skilled nursing today (April 20). MMODL / IJN: [id number] /
--- NOTE | 2023-04-20 22:45 | P.PN ---
Subjective Patient is seen for follow-up for hyponatremia. Maintained on normal saline. Sodium improved to 131 on 04/16/2023. No labs available today. Tolerating oral intake. 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 Hypovolemic hyponatremia further worsened with the use of NSAIDs and thiazide diuretic. Improved with normal saline. Sodium level 121 on admission and is 131 on 04/16/23. GFR at baseline. TSH normal. Cortisol level not low. Urine osmolality 444 2. Benign hypertension. Stable. 3. 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 Being followed by orthopedic surgery. Surgery being considered. 4. Metabolic acidosis secondary to IV fluids, improved. Plan: Repeat labs today Continue to encourage increased oral intake, particularly protein. Avoid HCTZ upon discharge.
--- NOTE | 2023-04-20 22:47 | P.PN ---
Subjective Patient is seen for follow-up for hyponatremia. Maintained on normal saline. Sodium improved to 133 on 04/18/2023. No labs available today. Tolerating oral intake. 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 Hypovolemic hyponatremia further worsened with the use of NSAIDs and thiazide diuretic. Improved with normal saline. Sodium level 121 on admission and is 133 on 04/18/23. GFR at baseline. TSH normal. Cortisol level not low. Urine osmolality 444 2. Benign hypertension. Stable. 3. 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 Being followed by orthopedic surgery. Surgery being considered. 4. Metabolic acidosis secondary to IV fluids, improved. Plan: can be discharged Continue to encourage increased oral intake, particularly protein. Avoid HCTZ upon discharge.
--- NOTE | 2023-04-22 08:29 | PN ---
PROGRESS NOTE DATE OF SERVICE: 04/15/2023 CHIEF COMPLAINTS: 1. Mental status changes and lethargy. 2. Alcoholism. HISTORY OF PRESENT ILLNESS: This gentleman is doing fairly well. He is a little bit more alert. He does have a low-grade fever. His white count is 24,100. REVIEW OF SYSTEMS: He is not complaining of cough, shortness of breath, chest pain, abdominal pain, etc. PHYSICAL EXAMINATION: VITAL SIGNS: Pulse is 111. CHEST: Demonstrates occasional rhonchi with slightly decreased breath sounds. CARDIAC: Normal except for the tachycardia. ABDOMEN: Soft, nontender. IMPRESSION: 1. Mental status changes. 2. Hyponatremia. 3. Leukocytosis. 4. Generalized weakness. 5. Alcoholism. PLAN: Continue with IV fluids and following of his temperature and white count. MMODL / IJN: [id number] /
--- NOTE | 2023-04-22 08:38 | PN ---
PROGRESS NOTE DATE OF SERVICE: 04/16/2023 CHIEF COMPLAINT: Mental status changes, hyponatremia, leukocytosis, and alcoholism. HISTORY OF PRESENT ILLNESS: This gentleman continues to do a little bit better. His sodium is improved from 121 to 127. His GFR is normal. PHYSICAL EXAMINATION: GENERAL: He is a little bit more awake and alert, but he remains confused. CHEST: Clear. CARDIAC: Normal. ABDOMEN: Soft and nontender. IMPRESSION: Dehydration with hyponatremia and alcoholism. PLAN: Continue management and look into discharge planning. MMODL / IJN: [id number] /
--- NOTE | 2023-04-22 08:44 | PN ---
PROGRESS NOTE DATE OF SERVICE: 04/17/2023 CHIEF COMPLAINTS: Dehydration, hyponatremia, alcoholism, and confusion. HISTORY OF PRESENT ILLNESS: This gentleman is doing fairly well. Numbers are improving. Each day he becomes more awake and more alert, but he remains confused. In discussion with his and son, it is learned that he has had some of these symptoms for some time. He also continued to drink and they are looking for long-term placement. PHYSICAL EXAMINATION: CHEST: He has scattered rhonchi. CARDIAC: Normal. ABDOMEN: Soft and nontender. IMPRESSION: 1. Mental status changes. 2. Dehydration. 3. Hyponatremia. 4. Chronic alcoholism. PLAN: Continue with inpatient management until his electrolytes are improved sufficiently and he is eating and moving about to the extent that he could go home or to a fpc. MMSERENITYL / IJN: [id number] /
--- NOTE | 2023-04-22 08:52 | PN ---
PROGRESS NOTE DATE OF SERVICE: 04/18/2023 CHIEF COMPLAINT: Alcoholic encephalopathy. HISTORY OF PRESENT ILLNESS: This gentleman continues to improve, numbers are better. Family want him to go to extended care. PHYSICAL EXAMINATION: GENERAL: He is awake and alert. CHEST: Clear. CARDIAC: Normal. ABDOMEN: Soft, nontender. IMPRESSION: 1. Mental status changes. 2. Alcoholic encephalopathy. 3. Alcoholism. 4. Dehydration. 5. Hyponatremia. PLAN: Work on the discharge plan. MMAMISH / JIM: [id number] /
--- NOTE | 2023-04-22 08:59 | PN ---
PROGRESS NOTE DATE OF SERVICE: 04/19/2023 CHIEF COMPLAINT: Mental status changes. HISTORY OF PRESENT ILLNESS: This gentleman becomes more alert every day, but remains slowly confused. and son feel that they could not handle him at home any longer. They both work. PHYSICAL EXAMINATION: CHEST: Clear. CARDIAC: Normal. ABDOMEN: Protuberant, soft. EXTREMITIES: Normal. IMPRESSION: 1. Mental status changes. 2. Alcoholic encephalopathy. 3. Alcoholism. 4. Electrolyte imbalance. PLAN: He is able to be discharged just about any time and we await Social Service's recommendations. The family want him to go to a fpc. MMODL / IJN: [id number] /
== END 2023-04-20 10:59 | DRG 641 ==
LOC: EC 19:02 → SUPCPDRO 19:02 → 4SSUR 04-14 03:24
PROVIDERS: ADMIT Family Medicine; ATTEND Family Medicine
DX: E87.1 Hypo-osmolality and hyponatremia (principal); M51.06 Intervertebral disc disorders with myelopathy, lumbar region; E87.20 Acidosis, unspecified; E86.0 Dehydration; F10.20 Alcohol dependence, uncomplicated; I10 Essential (primary) hypertension; K59.03 Drug induced constipation; T40.2X5A Adverse effect of other opioids, initial encounter; M48.062 Spinal stenosis, lumbar region with neurogenic claudication; M48.07 Spinal stenosis, lumbosacral region; G89.29 Other chronic pain; Z11.52 Encounter for screening for COVID-19; Z28.21 Immunization not carried out because of patient refusal; E86.1 Hypovolemia; M47.897 Other spondylosis, lumbosacral region; F17.210 Nicotine dependence, cigarettes, uncomplicated; E78.5 Hyperlipidemia, unspecified; R29.6 Repeated falls; Z79.891 Long term (current) use of opiate analgesic; Z79.899 Other long term (current) drug therapy; Z91.81 History of falling
CPT/HCPCS: 36415; 51798; 70450; 71045; 72132; 74018; 74177; 80048; 80053; 81001; 81003; 82150; 82533; 83605; 83690; 83735; 83930; 83935; 84100; 84145; 84295; 84443; 84484; 85025; 87040; 87636; 93005; 94640; 96361; 96365; 96366; 99285

== ENCOUNTER → 2024-10-31 | Outpatient (CLI) | payer MEDICARE, OTHER ==
--- NOTE | 2024-10-31 12:14 | CT ---
EXAMINATION TYPE: CT brain wo con DATE OF EXAM: 10/31/2024 11:57 AM COMPARISON: 04/20/2023.. CLINICAL INDICATION: Male, 69 years old with history of R26.2 DIFFICULTY IN WALKING, NOT ELSEWHERE CL ASSIF, difficulty walking TECHNIQUE: Brain: Axial CT images of the brain were obtained with coronal and sagittal reformats created and rev iewed. Contrast used: None. Oral contrast used: None. CT DLP: 1216 mGycm, Automated exposure control for dose reduction was used. FINDINGS: Brain: Extra-axial spaces: No abnormal extra-axial fluid collections. Ventricular system: Dilatation in proportion to cerebral atrophy. Cerebral parenchyma: Cerebral atrophy. No acute intraparenchymal hemorrhage or mass effect. The rodney delisa of the astorga-white junctions are well differentiated. Cerebellum: Unremarkable. Mass effect: No evidence of midline shift. Intracranial vasculature: Atherosclerotic calcifications of the intracranial vessels. Soft tissues: Normal. Calvarium/osseous structures: No depressed skull fracture. Paranasal sinuses and mastoid air cells: Mild scattered paranasal sinus disease. Visualized orbits: Bilateral aphakia IMPRESSION: 1. No acute intracranial process. 2. Nonspecific white matter changes, likely secondary to chronic small vessel ischemic disease. [facility], , 10/31/2024 12:11 PM
== END | disposition home or self-care (01) ==
LOC: RADCTMAIN 11:27
PROVIDERS: ATTEND Psychiatry & Neurology Neurology
DX: R90.82 White matter disease, unspecified (principal); R26.2 Difficulty in walking, not elsewhere classified; R53.1 Weakness
CPT/HCPCS: 70450

== ENCOUNTER 2024-11-01 15:51 | Observation (INO) | payer MEDICARE ==
--- NOTE | 2024-11-01 17:12 | ED ---
Back Pain HPI - General Chief Complaint: Back Pain/Injury Stated Complaint: Back pain Time Seen by Provider: 11/01/24 17:10 Source: patient, EMS, RN notes reviewed Limitations: no limitations - History of Present Illness Initial Comments: 69-year-old male presenting to the ER for back spasms x 3 hours. States he was sitting in his chair on the back patio when he began to experience spasms in his back that radiate to the front of his abdomen. States spasms have improved but now states he feels his back is "sore". States he has never had this before so he thought he should get checked out. Also reports he had his "nerves burned" [address] Feliz. States he gets this done approximately every 6 months for back pain. Denies fevers, chest pain, confusion, shortness of breath, abdominal pain, nausea, vomiting, diarrhea. Denies any drug or alcohol use. - Related Data Home Medications Medication Instructions Recorded Confirmed Cyclobenzaprine [Flexeril] 10 mg PO BID PRN 04/14/23 04/14/23 Fluticasone/Umeclidin/Vilanter 1 puff INHALATION RT-DAILY 04/14/23 04/14/23 [Trelegy Ellipta 100-62.5-25] Ibuprofen [Motrin] 600 mg PO Q6H PRN 04/14/23 04/14/23 Losartan-Hctz 50-12.5 mg [Hyzaar 1 tab PO DAILY 04/14/23 04/14/23 50-12.5] Pantoprazole Sodium [Protonix] 40 mg PO DAILY 04/14/23 04/14/23 Previous Rx's Medication Instructions Recorded carvediloL [Coreg*] 12.5 mg PO BID-W/MEALS #60 tab 04/19/23 tadalafiL [Cialis] 5 mg PO DAILY #30 tab 04/19/23 Allergies Allergy/AdvReac Type Severity Reaction Status Date / Time No Known Allergies Allergy Verified 11/01/24 16:31 Review of Systems ROS Statement: Those systems with pertinent positive or pertinent negative responses have been documented in the HPI. ROS Other: All systems not noted in ROS Statement are negative. Past Medical History Past Medical History: Hyperlipidemia, Hypertension, Osteoarthritis (OA) Additional Past Medical History / Comment(s): djd of spine History of Any Multi-Drug Resistant Organisms: None Reported Past Surgical History: Orthopedic Surgery Additional Past Surgical History / Comment(s): cervical fusion Smoking Status: Current every day smoker Past Alcohol Use History: None Reported Past Drug Use History: None Reported General Exam Limitations: no limitations General appearance: alert, in no apparent distress, appears intoxicated Head exam: Present: atraumatic, normocephalic, normal inspection Eye exam: Present: normal appearance, PERRL, EOMI. Absent: scleral icterus, conjunctival injection, periorbital swelling Respiratory exam: Present: normal lung sounds bilaterally. Absent: respiratory distress, wheezes, rales, rhonchi, stridor Cardiovascular Exam: Present: regular rate, normal rhythm, normal heart sounds. Absent: systolic murmur, diastolic murmur, rubs, gallop, clicks GI/Abdominal exam: Present: soft, normal bowel sounds. Absent: distended, tenderness, guarding, rebound, rigid Back exam: Present: normal inspection, full ROM. Absent: CVA tenderness (R), CVA tenderness (L) Neurological exam: Present: alert, oriented X3 Psychiatric exam: Present: normal affect, normal mood Skin exam: Present: warm, dry, intact, normal color. Absent: rash Course Vital Signs 11/01/24 11/01/24 11/01/24 16:28 18:36 18:43 Temperature 98.0 F Pulse Rate 74 87 86 Respiratory 18 Rate Blood Pressure 100/67 O2 Sat by Pulse 95 Oximetry 11/01/24 11/01/24 19:00 21:35 Temperature 98.5 F 98.1 F Pulse Rate 85 87 Respiratory 16 20 Rate Blood Pressure 98/67 127/81 O2 Sat by Pulse 95 92 L Oximetry Medical Decision Making - Medical Decision Making Was pt. sent in by a medical professional or institution (, PA, SPECIAL INVESTIGATION UNIT INVESTIGATOR, urgent care, hospital, or residential...) When possible be specific @ -No Did you speak to anyone other than the patient for history (EMS, parent, family, police, friend...)? What history was obtained from this source @ -No Did you review nursing and triage notes (agree or disagree)? Why? @ -I reviewed and agree with nursing and triage notes Were old charts reviewed (outside hosp., previous admission, EMS record, old EKG, old radiological studies, urgent care reports/EKG's, residential records)? Report findings @ -Reviewed CT brain from yesterday which revealed no acute intracranial process Differential Diagnosis (chest pain, altered mental status, abdominal pain women, abdominal pain men, vaginal bleeding, weakness, fever, dyspnea, syncope, headache, dizziness, GI bleed, back pain, seizure, CVA, palpatations, mental health, musculoskeletal)? @ -Differential Back Pain: Strain, zoster, cauda equina syndrome, epidural abscess, vertebral osteomyelitis, discitis, fracture, subluxation, disc herniation, DJD, spinal stenosis, dissection, AAA, pancreatitis, peptic ulcer disease, pyelonephritis, kidney stone, this is not meant to be an all-inclusive list. EKG interpreted by me (3pts min.). @ -None X-rays interpreted by me (1pt min.). @ -Chest x-ray reveals mild plate atelectasis to the left lower lobe CT interpreted by me (1pt min.). @ -None done U/S interpreted by me (1pt. min.). @ -None done What testing was considered but not performed or refused? (CT, X-rays, U/S, labs)? Why? @ -None What meds were considered but not given or refused? Why? @ -None Did you discuss the management of the patient with other professionals (professionals i.e. , PA, SPECIAL INVESTIGATION UNIT INVESTIGATOR, lab, RT, psych nurse, group social worker, floor coverings salesperson, teacher, intelligence officer, patient case manager)? Give summary @ -I spoke with Dr. Camara who accepts admission Was smoking cessation discussed for >3mins.? @ -No Was critical care preformed (if so, how long)? @ -No Were there social determinants of health that impacted care today? How? (Homelessness, low income, unemployed, alcoholism, drug addiction, transportation, low edu. Level, literacy, decrease access to med. care, [facility], rehab)? @ -No Was there de-escalation of care discussed even if they declined (Discuss DNR or withdrawal of care, Hospice)? DNR status @ -No What co-morbidities impacted this encounter? (DM, HTN, Smoking, COPD, CAD, Cancer, CVA, ARF, Chemo, Hep., AIDS, mental health diagnosis, sleep apnea, morbid obesity)? @ -None Was patient admitted / discharged? Hospital course, mention meds given and route, prescriptions, significant lab abnormalities, going to OR and other pertinent info. @ - admitted. 69-year-old male presenting for back spasms x 3 hours. Denies injury or trauma. Patient is borderline hypertensive and appears intoxicated, therefore full workup was conducted. Provided with lidocaine patch and IV fluids. Lab work remarkable for VAISHALI creatinine 2.62, BUN 32, leukocytosis of 17 with left shift. Undetectable troponin. Blood alcohol less than 10. Chest x- ray reveals mildly atelectasis left lower lobe. Urinalysis unremarkable. Repeat blood pressure 98/67. Due to VAISHALI and hypotension, patient will be admitted to medicine with nephrology consult. Patient is agreeable to plan. Also spoke with patient's on the phone and updated on plan of care. Case was discussed with my ED attending Dr. Hugo Undiagnosed new problem with uncertain prognosis? @ -No Drug Therapy requiring intensive monitoring for toxicity (Heparin, Nitro, Insulin, Cardizem)? @ -No Were any procedures done? @ -No Diagnosis/symptom? @ -Acute kidney injury Acute, or Chronic, or Acute on Chronic? @ -Acute Uncomplicated (without systemic symptoms) or Complicated (systemic symptoms)? @ -Uncomplicated Side effects of treatment? @ -No Exacerbation, Progression, or Severe Exacerbation? @ -No Poses a threat to life or bodily function? How? (Chest pain, USA, MA, pneumonia, PE, COPD, DKA, ARF, appy, cholecystitis, CVA, Diverticulitis, Homicidal, Suicidal, threat to staff... and all critical care pts) @ -Yes possibly - Lab Data Result diagrams: 11/01/24 17:31 11/01/24 17:31 Lab Results 11/01/24 11/01/24 11/01/24 Range/Units 17:31 17:31 17:31 WBC 16.91 H (4.50-10.00) 10*3/uL RBC 4.26 L (4.40-5.60) 10*6/uL Hgb 13.0 (13.0-17.0) g/dL Hct 38.4 L (39.6-50.0) % MCV 90.1 (80.0-97.0) fL MCH 30.5 (27.0-32.0) pg MCHC 33.9 (32.0-37.0) g/dL Plt Count 367 (140-440) 10*3/uL MPV 9.6 (9.5-12.2) fL Immature Gran % (Auto) 1.7 % Neutrophils % 78.2 % Lymphocytes % 9.9 % Monocytes % 7.0 % Eosinophils % 2.5 % Basophils % 0.7 % Immature Gran # 0.28 H (0.00-0.04) 10*3/uL Neutrophils # 13.24 H (1.80-7.70) 10*3/uL Lymphocytes # 1.67 (0.90-5.00) 10*3/uL Monocytes # 1.19 H (0.20-1.00) 10*3/uL Eosinophils # 0.42 H (0.04-0.35) 10*3/uL Basophils # 0.11 H (0.00-0.10) 10*3/uL Sodium 132 L (137-145) mmol/L Potassium 4.4 (3.5-5.1) mmol/L Chloride 91 L (98-107) mmol/L Carbon Dioxide 27 (22-30) mmol/L Anion Gap 14 mmol/L BUN 32 H (9-20) mg/dL Creatinine 2.62 H (0.66-1.25) mg/dL Est GFR (CKD-EPI)AfAm 27 (>60 ml/min/1.73 sqM) Est GFR (CKD-EPI)NonAf 24 (>60 ml/min/1.73 sqM) Glucose 112 H (74-99) mg/dL Calcium 9.6 (8.4-10.2) mg/dL Magnesium 2.6 H (1.6-2.3) mg/dL Total Bilirubin 0.5 (0.2-1.3) mg/dL AST 27 (17-59) U/L ALT 18 (4-49) U/L Alkaline Phosphatase 97 (38-126) U/L Troponin I <0.012 (0.000-0.034) ng/mL Total Protein 7.5 (6.3-8.2) g/dL Albumin 4.4 (3.5-5.0) g/dL Urine Color Urine Appearance (Clear) Urine pH (5.0-8.0) Ur Specific [place] (1.001-1.035) Urine Protein (Negative) Urine Glucose (UA) (Negative) Urine Ketones (Negative) Urine Blood (Negative) Urine Nitrite (Negative) Urine Bilirubin (Negative) Urine Urobilinogen (<2.0) mg/dL Ur Leukocyte Esterase (Negative) Urine Opiates Screen (NotDetected) Ur Oxycodone Screen (NotDetected) Urine Methadone Screen (NotDetected) Ur Barbiturates Screen (NotDetected) U Tricyclic Antidepress (NotDetected) Ur Phencyclidine Scrn (NotDetected) Ur Amphetamines Screen (NotDetected) U Methamphetamines Scrn (NotDetected) U Benzodiazepines Scrn (NotDetected) Urine Cocaine Screen (NotDetected) U Marijuana (THC) Screen (NotDetected) Serum Alcohol <10 mg/dL 11/01/24 11/01/24 Range/Units 19:58 19:58 WBC (4.50-10.00) 10*3/uL RBC (4.40-5.60) 10*6/uL Hgb (13.0-17.0) g/dL Hct (39.6-50.0) % MCV (80.0-97.0) fL MCH (27.0-32.0) pg MCHC (32.0-37.0) g/dL Plt Count (140-440) 10*3/uL MPV (9.5-12.2) fL Immature Gran % (Auto) % Neutrophils % % Lymphocytes % % Monocytes % % Eosinophils % % Basophils % % Immature Gran # (0.00-0.04) 10*3/uL Neutrophils # (1.80-7.70) 10*3/uL Lymphocytes # (0.90-5.00) 10*3/uL Monocytes # (0.20-1.00) 10*3/uL Eosinophils # (0.04-0.35) 10*3/uL Basophils # (0.00-0.10) 10*3/uL Sodium (137-145) mmol/L Potassium (3.5-5.1) mmol/L Chloride (98-107) mmol/L Carbon Dioxide (22-30) mmol/L Anion Gap mmol/L BUN (9-20) mg/dL Creatinine (0.66-1.25) mg/dL Est GFR (CKD-EPI)AfAm (>60 ml/min/1.73 sqM) Est GFR (CKD-EPI)NonAf (>60 ml/min/1.73 sqM) Glucose (74-99) mg/dL Calcium (8.4-10.2) mg/dL Magnesium (1.6-2.3) mg/dL Total Bilirubin (0.2-1.3) mg/dL AST (17-59) U/L ALT (4-49) U/L Alkaline Phosphatase (38-126) U/L Troponin I (0.000-0.034) ng/mL Total Protein (6.3-8.2) g/dL Albumin (3.5-5.0) g/dL Urine Color Yellow Urine Appearance Clear (Clear) Urine pH 5.5 (5.0-8.0) Ur Specific [place] 1.017 (1.001-1.035) Urine Protein Negative (Negative) Urine Glucose (UA) Negative (Negative) Urine Ketones Negative (Negative) Urine Blood Negative (Negative) Urine Nitrite Negative (Negative) Urine Bilirubin Negative (Negative) Urine Urobilinogen <2.0 (<2.0) mg/dL Ur Leukocyte Esterase Negative (Negative) Urine Opiates Screen Detected H (NotDetected) Ur Oxycodone Screen Not Detected (NotDetected) Urine Methadone Screen Not Detected (NotDetected) Ur Barbiturates Screen Not Detected (NotDetected) U Tricyclic Antidepress Not Detected (NotDetected) Ur Phencyclidine Scrn Not Detected (NotDetected) Ur Amphetamines Screen Not Detected (NotDetected) U Methamphetamines Scrn Not Detected (NotDetected) U Benzodiazepines Scrn Detected H (NotDetected) Urine Cocaine Screen Not Detected (NotDetected) U Marijuana (THC) Screen Not Detected (NotDetected) Serum Alcohol mg/dL - EKG Data -: EKG Interpreted by Me EKG Comments: EKG reveals normal sinus rhythm with no acute ST changes. Ventricular rate 88 bpm, MN interval 196, QRS duration 96, QT/QTc 344/389 Disposition Clinical Impression: Acute kidney injury Disposition: ADMITTED IP TO THIS [facility] Referrals: Reed Camara MD [Primary Care Provider] - 1-2 days Time of Disposition: 22:13
[2024-11-01] MEDS: LIDOCAINE 4% PATCH TOPICAL ONE (17:28)
[2024-11-01] MEDS: SODIUM CHLORIDE 0.9% 1,000 ML IV STA (17:28)
[2024-11-01] MEDS: HYDROcodone/APAP 10-325MG 1 EACH TAB PO ONE (17:39)
[2024-11-01 17:51] LABS: Basophils # (A) 0.11 10*3/uL (0.00-0.10); Basophils % (A) 0.7 %; Eosinophils # (A) 0.42 10*3/uL (0.04-0.35); Eosinophils % (A) 2.5 %; HCT 38.4 % (39.6-50.0); Lymphocytes # (A) 1.67 10*3/uL (0.90-5.00); Lymphocytes % (A) 9.9 %; MCH 30.5 pg (27.0-32.0); MCHC 33.9 g/dL (32.0-37.0); MCV 90.1 fL (80.0-97.0); Mean Platelet Volume 9.6 fL (9.5-12.2); Monocytes # (A) 1.19 10*3/uL (0.20-1.00); Neutrophils # (A) 13.24 10*3/uL (1.80-7.70); Neutrophils % (A) 78.2 %; Platelet Count 367 10*3/uL (140-440); RBC 4.26 10*6/uL (4.40-5.60); RDW 12.7 % (11.5-14.5); WBC 16.91 10*3/uL (4.50-10.00)
[2024-11-01 17:56] LABS: ALT 18 U/L (4-49); AST 27 U/L (17-59); African American GFR (CKD) 27 (>60 ml/min/1.73 sqM); Albumin 4.4 g/dL (3.5-5.0); Alcohol <10 mg/dL; Alkaline Phosphatase 97 U/L (38-126); Anion Gap 14 mmol/L; Blood Urea Nitrogen 32 mg/dL (9-20); Calcium 9.6 mg/dL (8.4-10.2); Carbon Dioxide 27 mmol/L (22-30); Chloride 91 mmol/L (98-107); Glucose 112 mg/dL (74-99); Magnesium 2.6 mg/dL (1.6-2.3); Non-African American GFR(CKD) 24 (>60 ml/min/1.73 sqM); Potassium 4.4 mmol/L (3.5-5.1); Sodium 132 mmol/L (137-145); Total Bilirubin 0.5 mg/dL (0.2-1.3); Total Protein 7.5 g/dL (6.3-8.2)
[2024-11-01] MEDS: IPRATROPIUM-ALBUTEROL 3 ML NEB INHALATION STA (18:36)
[2024-11-01 20:11] LABS: Appearance,Urine Clear (Clear); Bilirubin,Urine Negative (Negative); Blood,Urine Negative (Negative); Color,Urine Yellow; Glucose,Urine (UA) Negative (Negative); Ketones,Urine Negative (Negative); Leukocyte Esterase,Urine Negative (Negative); Nitrite,Urine Negative (Negative); PH, Urine 5.5 (5.0-8.0); Protein,Urine Negative (Negative); Specific Gravity,Urine 1.017 (1.001-1.035); Urobilinogen,Urine <2.0 mg/dL (<2.0)
[2024-11-01 20:20] LABS: Amphetamine Screen,Urine Not Detected (NotDetected); Barbiturate Screen,Urine Not Detected (NotDetected); Benzodiazepines Screen,Urine Detected (NotDetected); Cocaine Screen,Urine Not Detected (NotDetected); Methadone Screen, Urine Not Detected (NotDetected); Opiate Screen,Urine Detected (NotDetected); Oxycodone Screen, Urine Not Detected (NotDetected); Phencyclidine Screen,Urine Not Detected (NotDetected); Tricyclic Antidepressant,Urine Not Detected (NotDetected); Urn Cannabinoid Scrn Not Detected (NotDetected)
--- NOTE | 2024-11-01 21:13 | XR ---
EXAMINATION TYPE: XR chest 2V DATE OF EXAM: 11/01/2024 6:37 PM COMPARISON: None. CLINICAL INDICATION: Male, 69 years old with history of wheezing, TECHNIQUE: XR chest 2V view(s) obtained. FINDINGS: The heart size is normal. The pulmonary vasculature is normal. The lungs are clear. Platelike atelectasis at the left base. Degenerative changes are noted at the bilateral shoulders IMPRESSION: 1. Mild plate atelectasis left lower lobe [facility], , 11/01/2024 9:10 PM
[2024-11-01] MEDS ORDERED: ONDANSETRON 4 MG/2 ML VIAL IVP PRN (22:09)
[2024-11-01] MEDS ORDERED: NALOXONE 0.4 MG/ML 1 ML VIAL IV PRN (22:09)
[2024-11-01] MEDS: HYDROcodone/APAP 5-325MG 1 EACH TAB PO PRN (22:44)
[2024-11-01] MEDS: SODIUM CHLORIDE 0.9% 1,000 ML IV SCH (22:45)
[2024-11-02] MEDS: MORPHINE SULFATE 4 MG/ML SYRINGE IV PRN (02:13)
--- NOTE | 2024-11-02 07:40 | US ---
EXAMINATION TYPE: US kidneys/renal and bladder DATE OF EXAM: 11/02/2024 COMPARISON: CT(04/13/2023) CLINICAL INDICATION: Male, 69 years old with history of erin; TECHNIQUE: Grayscale imaging of the bilateral kidneys and urinary bladder: FINDINGS: EXAM MEASUREMENTS: Right Kidney: 9.8x4.9x5.5 cm Left Kidney: 11.2x5.1x4.9 cm limited visualization due to pt unable to fully roll or hold breath in? Right Kidney: ?mildly dilated renal pelvis Left Kidney: No hydronephrosis or masses seen Bladder: wnl Bilateral Jets seen: slightly limited IMPRESSION: 1. Mild renal atrophy with decreased renal size and thinning of the cortex. 2. No solid renal mass, or hydronephrosis. 3 unremarkable urinary bladder. [facility], Workstation: ROLANDO 11/02/2024 7:38 AM
[2024-11-02 08:05] LABS: African American GFR (CKD) 34 (>60 ml/min/1.73 sqM); Anion Gap 12 mmol/L; Blood Urea Nitrogen 33 mg/dL (9-20); Calcium 8.9 mg/dL (8.4-10.2); Carbon Dioxide 25 mmol/L (22-30); Chloride 96 mmol/L (98-107); Glucose 116 mg/dL (74-99); Magnesium 2.4 mg/dL (1.6-2.3); Non-African American GFR(CKD) 30 (>60 ml/min/1.73 sqM); Potassium 3.8 mmol/L (3.5-5.1); Sodium 133 mmol/L (137-145)
[2024-11-02] MEDS: polyethylene glycoL 3350 17 GM POWD.PACK PO SCH (09:32)
--- NOTE | 2024-11-02 10:39 | P.NPCON ---
History of Present Illness - Reason for Consult acute renal failure - History of Present Illness Reason for consultation: Acute kidney injury History of present illness: Patient is a 69-year-old male seen in consultation for acute kidney injury. Patient's creatinine in April 2023 was 0.8-0.9. Creatinine this admission was elevated at 2.62 and was improved to 2.17 today. Patient came to the hospital due to back spasms which started yesterday. Patient states he undergoes radiofrequency ablation of the nerves in the lower back by neurology. He last had this done on Monday. He does admit to taking ibuprofen twice daily. He was also on losartan and hydrochlorothiazide which are currently held. He denies history of diabetes or coronary artery disease. Admits to good urine output. No gross hematuria or dysuria. No vomiting or diarrhea. No fever or chills. Vital signs are stable. General: No acute distress. HEENT: Head exam is unremarkable. LUNGS: No audible rhonchi or wheezes. HEART: Rate and Rhythm are regular. ABDOMEN: Nontender. EXTREMITITES: No edema. Past Medical History Past Medical History: Hyperlipidemia, Hypertension, Osteoarthritis (OA) Additional Past Medical History / Comment(s): djd of spine History of Any Multi-Drug Resistant Organisms: None Reported Past Surgical History: Orthopedic Surgery Additional Past Surgical History / Comment(s): cervical fusion Smoking Status: Current every day smoker Past Alcohol Use History: None Reported Past Drug Use History: None Reported Medications and Allergies Home Medications Medication Instructions Recorded Confirmed Type Cyclobenzaprine [Flexeril] 10 mg PO BID PRN 04/14/23 04/14/23 History Fluticasone/Umeclidin/Vilanter 1 puff INHALATION RT-DAILY 04/14/23 04/14/23 History [Trelegy Ellipta 100-62.5-25] Ibuprofen [Motrin] 600 mg PO Q6H PRN 04/14/23 04/14/23 History Losartan-Hctz 50-12.5 mg [Hyzaar 1 tab PO DAILY 04/14/23 04/14/23 History 50-12.5] Pantoprazole Sodium [Protonix] 40 mg PO DAILY 04/14/23 04/14/23 History carvediloL [Coreg*] 12.5 mg PO BID-W/MEALS #60 tab 04/19/23 Rx tadalafiL [Cialis] 5 mg PO DAILY #30 tab 04/19/23 Rx Allergies Allergy/AdvReac Type Severity Reaction Status Date / Time No Known Allergies Allergy Verified 11/01/24 16:31 Physical Exam Vitals: Vital Signs Temp Pulse Pulse Resp BP BP Pulse Ox 11/02/24 08:00 98.1 F 102 H 18 127/79 93 L 11/02/24 07:56 98.1 F 82 18 116/78 97 11/02/24 06:29 98.4 F 82 16 115/78 97 11/02/24 02:00 97.7 F 82 16 118/73 95 11/01/24 22:50 98 18 121/75 97 11/01/24 21:35 98.1 F 87 20 127/81 92 L 11/01/24 19:00 98.5 F 85 16 98/67 95 11/01/24 18:43 86 11/01/24 18:36 87 11/01/24 16:28 98.0 F 74 18 100/67 95 Intake and Output 11/01/24 11/02/24 11/02/24 22:59 06:59 14:59 Other: Weight 90.718 kg Results - Lab Results Most recent lab results Calcium 8.9 mg/dL (8.4-10.2) 11/02/24 07:32 Magnesium 2.4 mg/dL (1.6-2.3) H 11/02/24 07:32 11/01/24 17:31 11/02/24 07:32 Assessment and Plan Plan: Assessment: 1. Acute kidney injury secondary to ATN secondary to NSAIDs and further risk with the use of losartan and thiazide diuretic. Creatinine 2.6 on admission and is 2.1 today. Creatinine 0.8-0.9 in April 2012 3. No hydronephrosis noted on renal ultrasound. UA benign. 2. Hyponatremia secondary to hypovolemia and thiazide diuretic. Better. 3. Back spasms. 4. Benign hypertension. Controlled. Plan: Maintain IV fluids. Encouraged oral intake. Avoid nephrotoxins. Thank you for the consultation. I will continue to follow the patient with you during his hospital stay.
[2024-11-02] MEDS ORDERED: ZINC OXIDE PASTE (Z-GUARD) 1 APPLIC TOPICAL PRN (17:26)
[2024-11-02] MEDS ORDERED: PANTOPRAZOLE 40 MG TABLET PO PRN (21:51)
--- NOTE | 2024-11-02 22:24 | HP ---
HISTORY AND PHYSICAL CHIEF COMPLAINT: Back pain and acute kidney injury. HISTORY OF PRESENT ILLNESS: This gentleman presented to the emergency room with back pain. When he was in the ER, he was found to have a BUN of 32, creatinine 2.62 with a GFR 27. He is also hypotensive. White count was 16,900. REVIEW OF SYSTEMS: He denied any nausea, vomiting, hematemesis, melena, hematuria, dysuria, chest pain, etc. Past medical history, family history and personal and social histories are all otherwise unremarkable and noncontributory. PHYSICAL EXAMINATION: GENERAL: He was dehydrated. HEAD, EARS, EYES, NOSE, MOUTH AND THROAT: Normal. CHEST: Clear. CARDIAC: Normal. ABDOMEN: Soft, nontender. Bowel sounds are present. EXTREMITIES: Normal. IMPRESSION: 1. Acute low back pain. 2. Osteoarthritis. 3. Acute kidney injury. 4. Chronic renal failure. 5. Hypotension. PLAN: 1. Bed rest. 2. IV fluids. 3. Consult with Nephrology. MMODL / IJN: [id number] /
[2024-11-02] MEDS: TAMSULOSIN 0.4 MG CAP.ER.24H PO SCH (23:19)
[2024-11-02] MEDS: GABAPENTIN 300 MG CAP PO SCH (23:19)
[2024-11-02] MEDS: ACETAMINOPHEN TAB 325 MG TAB PO PRN (23:42)
[2024-11-03 08:01] LABS: African American GFR (CKD) 51 (>60 ml/min/1.73 sqM); Anion Gap 8 mmol/L; Blood Urea Nitrogen 28 mg/dL (9-20); Calcium 9.1 mg/dL (8.4-10.2); Carbon Dioxide 28 mmol/L (22-30); Chloride 97 mmol/L (98-107); Glucose 146 mg/dL (74-99); Magnesium 2.2 mg/dL (1.6-2.3); Non-African American GFR(CKD) 44 (>60 ml/min/1.73 sqM); Potassium 3.3 mmol/L (3.5-5.1); Sodium 133 mmol/L (137-145)
[2024-11-03] MEDS: PRAVASTATIN SODIUM 20 MG TAB PO SCH (09:07)
--- NOTE | 2024-11-03 11:40 | P.PN ---
Subjective Patient is seen in follow-up for acute kidney injury. Renal function improving. Admits to good urine output. No chest pain or shortness of breath. Vital signs are stable. General: No acute distress. HEENT: Head exam is unremarkable. LUNGS: No audible rhonchi or wheezes. HEART: Rate and Rhythm are regular. ABDOMEN: Nontender. EXTREMITITES: Trace edema. Objective - Vital Signs Vital signs: Vital Signs Temp 97.3 F L 11/03/24 07:45 Pulse 85 11/03/24 07:45 Resp 17 11/03/24 07:45 BP 121/73 11/03/24 07:45 Pulse Ox 94 L 11/03/24 07:45 FiO2 Intake & Output 11/02/24 11/03/24 11/03/24 18:59 06:59 18:59 Intake Total 540 Output Total 250 Balance 540 -250 Weight 90.718 kg Intake: Oral 540 Output: Urine 250 Other: Voiding Method Toilet Toilet Toilet # Voids 2 # Bowel Movements 1 - Labs CBC & Chem 7: 11/01/24 17:31 11/03/24 07:04 Labs: Abnormal Lab Results - Last 24 Hours (Table) 11/03/24 Range/Units 07:04 Sodium 133 L (137-145) mmol/L Potassium 3.3 L (3.5-5.1) mmol/L Chloride 97 L (98-107) mmol/L BUN 28 H (9-20) mg/dL Creatinine 1.58 H (0.66-1.25) mg/dL Glucose 146 H (74-99) mg/dL Assessment and Plan Plan: Assessment: 1. Acute kidney injury secondary to ATN secondary to NSAIDs and further risk with the use of losartan and thiazide diuretic. Creatinine 2.6 on admission and is 1.58 today. Creatinine 0.8-0.9 in April 2012 3. No hydronephrosis noted on renal ultrasound. UA benign. 2. Hyponatremia secondary to hypovolemia and thiazide diuretic. Better. 3. Back spasms. 4. Benign hypertension. Controlled. Plan: Hep-Lock IV fluids. Replace potassium. Encouraged oral intake. Avoid nephrotoxins. Follow-up outpatient 1 to 2 weeks postdischarge.
[2024-11-03] MEDS: POTASSIUM CHLORIDE ER 20 MEQ TAB.ER PO STA (11:54)
--- NOTE | 2024-11-04 00:09 | PN ---
PROGRESS NOTE CHIEF COMPLAINT: Back pain and acute kidney injury. HISTORY OF PRESENT ILLNESS: This gentleman is still complaining of back pain. IV fluids have been started and his numbers have somewhat improved. When he came in, his white count was 16,900 and his BUN was 32 and creatinine 2.62 or GFR 27. PHYSICAL EXAMINATION: VITAL SIGNS: Blood pressure is 98/67. GENERAL: Appears to be awake and alert. Not uncomfortable. HEAD, EYES, EARS, NOSE, MOUTH AND THROAT: Normal. CHEST: Clear. CARDIAC: Normal. ABDOMEN: Soft, nontender. IMPRESSION: 1. Dehydration. 2. Acute kidney injury. PLAN: Continue to administer IV fluids and he is being seen by Nephrology. MMODL / IJN: [id number] /
--- NOTE | 2024-11-04 09:24 | PN ---
PROGRESS NOTE CHIEF COMPLAINT: Acute kidney injury. HISTORY OF PRESENT ILLNESS: This gentleman is slowly improving. He has felt a little bit nauseated, but his numbers are improving. PHYSICAL EXAMINATION: CHEST: Clear. CARDIAC: Normal. ABDOMEN: Soft, nontender. IMPRESSION: Acute kidney injury. PLAN: Continue with IV fluids. Renal function is improving. He may be able to go home tomorrow. MMODL / IJN: [id number] /
[2024-11-04 10:31] LABS: BUN/Creat Ratio 17.42 Ratio (12.00-20.00); Blood Urea Nitrogen 20.9 mg/dL (9.0-27.0); Calcium 9.5 mg/dL (8.7-10.3); Chloride 100 mmol/L (96-109); Glucose 121 mg/dL (70-110); Magnesium 2.1 mg/dL (1.5-2.4); Potassium 3.8 mmol/L (3.5-5.5); Sodium 137 mmol/L (135-145)
[2024-11-04 13:13] VITALS: BP 161/93; PULSE 98; RESP 20; TEMP 98.1
--- NOTE | 2024-11-04 18:51 | P.PN ---
Subjective Patient is seen for follow-up for acute kidney injury. Serum creatinine improved to 1.5 yesterday. No significant complaints today. Objective - Vital Signs Vital signs: Vital Signs Temp 98.1 F 11/04/24 12:42 Pulse 98 11/04/24 12:42 Resp 20 11/04/24 12:42 BP 161/93 11/04/24 12:42 Pulse Ox 96 11/04/24 12:42 FiO2 Intake & Output 11/03/24 11/04/24 11/04/24 18:59 06:59 18:59 Other: Voiding Method Toilet Toilet Urinal # Voids 1 - Exam Patient is awake, comfortable, no acute distress Examination of the heart S1 and S2 Examination of the lungs bilateral breath sounds are heard Abdomen is soft nontender Examination of lower extremities shows no significant edema - Labs CBC & Chem 7: 11/01/24 17:31 11/04/24 05:17 Labs: Abnormal Lab Results - Last 24 Hours (Table) 11/04/24 Range/Units 05:17 Anion Gap 14.00 H (4.00-12.00) mmol/L Glucose 121 H (70-110) mg/dL Assessment and Plan Assessment: 1. Acute kidney injury secondary to ATN secondary to NSAIDs and further risk with the use of losartan and thiazide diuretic. Creatinine 2.6 on admission and is 1.58 yesterday. Creatinine 0.8-0.9 in April 2012 3. No hydronephrosis noted on renal ultrasound. UA benign. 2. Hyponatremia secondary to hypovolemia and thiazide diuretic. Better. 3. Back spasms. 4. Benign hypertension. Controlled. Plan: Continue to encourage increased oral intake Repeat labs as outpatient and about 1 week Continue to avoid NSAIDs
--- NOTE | 2024-11-05 10:25 | DS ---
DISCHARGE SUMMARY CHIEF COMPLAINT: Back pain and acute kidney injury. HISTORY OF PRESENT ILLNESS AND PHYSICAL EXAMINATION: Details of this man's history and physical can be found in the initial workup. LABORATORY STUDIES: While he is in the hospital, he had laboratory studies, details of which can be found in the laboratory section of his chart. COURSE IN THE HOSPITAL: After admission, he was placed on bedrest, started on intravenous fluids and he was seen and followed by Nephrology. As he was rehydrated, his BUN and creatinine dropped to normal. He was doing well and was asymptomatic and was discharged on . He will be followed up in the office. FINAL DIAGNOSES: 1. Prerenal azotemia. 2. Dehydration. 3. Osteoarthritis of the spine. OPERATIONS: None. CONSULTATION: Nephrology. SCOTTIE / JIM: [id number] /
== END 2024-11-04 14:45 | disposition home or self-care (01) ==
LOC: EC 15:51 → 5NMEDONC 22:12 → 6NMEDSUR 11-02 18:46
PROVIDERS: ADMIT Family Medicine; ATTEND Family Medicine
DX: E86.0 Dehydration (principal); N17.0 Acute kidney failure with tubular necrosis; E86.1 Hypovolemia; E87.1 Hypo-osmolality and hyponatremia; I95.9 Hypotension, unspecified; M47.9 Spondylosis, unspecified; M62.830 Muscle spasm of back; M54.50 Low back pain, unspecified; I12.9 Hypertensive chronic kidney disease with stage 1 through stage 4 chronic kidney disease, or unspecified chronic kidney disease; N18.9 Chronic kidney disease, unspecified; E78.5 Hyperlipidemia, unspecified; M19.90 Unspecified osteoarthritis, unspecified site; F17.200 Nicotine dependence, unspecified, uncomplicated; Z79.899 Other long term (current) drug therapy
CPT/HCPCS: 96361 ×3; 96374; 99285; 36415; 94640; 93005; 80053; 80048 ×3; 83735 ×4; 84484; 85025; 81003; 80306; 80320; 71046; 76770; G0378 ×4; J2270